=== PATIENT | male | born 1935 | race Hispanic/Latino ===

== ENCOUNTER 2017-11-16 06:29 | Inpatient (IN) | payer MEDICARE, OTHER ==
[~2017-11-16] VITALS: Ht 167.6 cm; Wt 79.0 kg
[2017-11-16] MEDS: ALBUTEROL SULF 0.083% NEB SOLN 3 ML NEB NEB SCH ×4 (00:15→19:20)
[~2017-11-16 06:29] MED LIST: ASPIRIN CHEW81 MG PO; BENZONATATE100 MG PO; CARDIZEM LA180 MG PO; CIPRO500 MG PO; COLACE100 MG PO; FINASTERIDE5 MG PO; HYDRALAZINE HCL10 MG PO; HYDROCHLOROTHIA25 MG; KCL10CCR PO; LASIX40 MG PO; LEVAQUIN500 MG PO; LOVASTATIN40 MG; LSNP2.5 PO; METOPROLOL TART50 MG PO; PEPCID20 MG PO; POTASSIUM CHLO20 ME1 PO; PREDNISONE20 MG PO; XARELTO20 MG PO
[2017-11-16] MEDS ORDERED: ACETAMINOPHEN 325 MG TAB PO ONE (07:45)
[2017-11-16 07:46] LABS: BASOPHILS # (AUTO) 0.1 (0.0-0.1); EOSINOPHILS # (AUTO) 0.1 (0.0-0.4); EOSINOPHILS % 1.7 % (0.0-6.0); HEMATOCRIT 34.1 % (38.2-49.6); HEMOGLOBIN 11.4 g/dL (14.0-18.0); LYMPHOCYTES % 19.6 % (18.0-39.1); MEAN CORPUSCULAR HEMOGLOBIN 28.6 pg (28-32); MEAN CORPUSCULAR HGB CONC 33.4 g/dL (31-35); MEAN CORPUSCULAR VOLUME 85.7 fL (81-99); MONOCYTES # (AUTO) 0.6 (0.2-0.8); NEUTROPHILS # (AUTO) 3.4 (2.1-6.9); NEUTROPHILS % 66.3 % (38.7-80.0); PLATELET COUNT 151 x10e3/uL (140-360); RED BLOOD COUNT 3.98 x10e6/uL (4.3-5.7); RED CELL DISTRIBUTION WIDTH 14.8 % (11.7-14.4)
[2017-11-16] MEDS ORDERED: FINASTERIDE5 MG PO (07:49)
[2017-11-16] MEDS ORDERED: LASIX40 MG PO (07:49)
[2017-11-16] MEDS ORDERED: LISINOPRIL2.5 MG PO (07:49)
[2017-11-16] MEDS ORDERED: XARELTO20 MG PO (07:49)
[2017-11-16 07:58] LABS: INR 1.76; PROTHROMBIN TIME 19.3 seconds (11.9-14.5)
[2017-11-16 07:59] LABS: PARTIAL THROMBOPLASTIN TIME 47.7 seconds (23.8-35.5)
[2017-11-16 08:05] LABS: ALANINE AMINOTRANSFERASE 7 IU/L (0-55); ALBUMIN 3.8 g/dL (3.5-5.0); ALBUMIN/GLOBULIN RATIO 0.8 (0.8-2.0); ALKALINE PHOSPHATASE 51 IU/L (40-150); ANION GAP 12.6 mmol/L (8-16); BLOOD UREA NITROGEN 17 mg/dL (7-26); BUN/CREATININE RATIO 16 (6-25); CALCIUM 8.6 mg/dL (8.4-10.2); CARBON DIOXIDE 22 mmol/L (22-29); CHLORIDE 107 mmol/L (98-107); CREATINE KINASE 94 IU/L (30-200); CREATININE, SERUM 1.04 mg/dL (0.72-1.25); EST GLOMERULAR FILTRATION RATE > 60 ML/MIN (60-); GLUCOSE 116 mg/dL (74-118); POTASSIUM 3.6 mmol/L (3.5-5.1); SODIUM 138 mmol/L (136-145)
[2017-11-16 08:15] LABS: B-TYPE NATRIURETIC PEPTIDE2 785.4 pg/mL (0-100)
--- NOTE | 2017-11-16 08:40 | Diagnostic Imaging Report ---
EXAMINATION: CHEST 2 VIEWS INDICATION: \S\FEVER/COUGH \S\[id number] \S\0744 COMPARISON: 07/18/2016 FINDINGS: PA and lateral views TUBES and LINES: None. LUNGS: Lungs are well inflated. Pulmonary vascular congestion. Minimal retrocardiac hazy opacification. PLEURA: No pleural effusion or pneumothorax. HEART AND MEDIASTINUM: Enlarged cardiac silhouette. Unchanged median sternotomy wires and mediastinal surgical clips. BONES AND SOFT TISSUES: No acute osseous lesion. Soft tissues are unremarkable. UPPER ABDOMEN: No free air under the diaphragm. IMPRESSION: Pulmonary vascular congestion, improved from prior exam. Minimal retrocardiac hazy opacification, representing atelectasis and/or developing pneumonia. Signed by: Dr. Terrance Whitney MD on 11/16/2017 8:36 AM
[2017-11-16] MEDS ORDERED: AZITHROMYCIN 500MG/SOD CHL 0.9% 250ML BAG IV SCH (09:15)
[2017-11-16] MEDS ORDERED: ASPIRIN 81 MG CHEW TAB PO ONE (09:15)
[2017-11-16] MEDS ORDERED: CEFTRIAXONE SOD 1 GM VIAL IV ONE (09:15)
[2017-11-16] MEDS ORDERED: AZITHROMYCIN 500MG/NS 250 ML 250 ML IV ONE (09:30)
--- OUTSIDE RECORDS SUMMARY | 2017-11-16 09:45 | XMS REPORT ---
Author Author [facility] Address Unknown Phone Unavailable Care Team Providers Care Concrete Tester Name Role Phone PHUONG MARKS Unavailable Unavailable Problems This patient has no known problems. Allergies, Adverse Reactions, Alerts This patient has no known allergies or adverse reactions. Medications This patient has no known medications. Results Test Description Test Time Test Comments Text Results Atomic Results Result Comments CHEST 2 VIEWS [place] [address] Patient Name: ALEX LANCASTER MR #: [id number] : 1935 Age/Sex: 81/M Req #: [id number] Adm Physician: Ordered by: PHUONG MARKS MD Report #: [id number] Location: ER Room/Bed: Procedure: [id number] DX/CHEST 2 VIEWS Exam Date: 11/16/17 Exam Time: 0744 REPORT STATUS: Signed EXAMINATION: CHEST 2 VIEWS INDICATION: COMPARISON: 07/18/2016 FINDINGS: PA and lateral views TUBES and LINES: None. LUNGS: Lungs are well inflated. Pulmonary vascular congestion. Minimal retrocardiac hazy opacification. PLEURA: No pleural effusion or pneumothorax. HEART AND MEDIASTINUM: Enlarged cardiac silhouette. Unchanged median sternotomy wires and mediastinal surgical clips. BONES AND SOFT TISSUES: No acute osseous lesion. Soft tissues are unremarkable. UPPER ABDOMEN: No free air under the diaphragm. IMPRESSION: Pulmonary vascular congestion, improved from prior exam. Minimal retrocardiac hazy opacification, representing atelectasis and/or developing pneumonia. Signed by: Dr. Terrance Whitney MD on 11/16/2017 8:36 AM Dictated By: TERRANCE WHITNEY MD 5 Transcribed By: ALEXANDRO on 11/16/17835 COPY TO: PHUONG MARKS MD
[2017-11-16] MEDS: IPRATROPIUM BROMIDE 0.02% 2.5 ML NEB NEB SCH ×2 (10:43→19:20)
[2017-11-16] MEDS: SODIUM CHLORIDE 0.9% 1000ML 1,000 ML IV SCH (10:59)
[2017-11-16] MEDS: OSELTAMIVIR PHOSPHATE 75 MG CAP PO SCH ×2 (11:00→16:55)
[2017-11-16] MEDS: CEFTRIAXONE SOD 1 GM VIAL IV SCH (11:00)
[2017-11-16] MEDS: AZITHROMYCIN 500MG/NS 250 ML 250 ML IV SCH (11:00)
[2017-11-16 11:43] VITALS: BP 126/79
[2017-11-16 12:02] VITALS: BP 126/79
[2017-11-16] MEDS ORDERED: GUAIFENESIN 200 MG/10 ML UDC PO PRN (14:45)
[2017-11-16] MEDS ORDERED: ACETAMINOPHEN 325 MG TAB PO PRN (14:45)
--- NOTE | 2017-11-16 14:47 | Consultation ---
DATE OF CONSULTATION: November 16, 2017 PULMONARY CONSULTATION REASON FOR CONSULTATION: Shortness of breath and cough. HPI: Mr. Mcbride is an 81-year-old male who presented to the emergency room with increasing cough. Patient was having these symptoms for 3 to 4 days. He denies any complaints of chest pain, nausea, vomiting or diarrhea. In the emergency room, he tested positive for flu. REVIEW OF SYSTEMS GENERAL: Denies any fever or chills. HEAD: Denies any head trauma or head injury. ENT: Denies any earache, nosebleed, throat pain. CVS: Denies any chest pain. RESPIRATORY: Cough. No shortness of breath. GI: Denies any nausea or vomiting. OTHER: The rest of the review systems are negative except as in HPI. PAST MEDICAL HISTORY: Hypertension and coronary artery disease. PAST SURGICAL HISTORY: CABG. FAMILY AND SOCIAL HISTORY: He lives with his . He does not smoke and does not drink. PHYSICAL EXAMINATION VITALS: Temperature 101.4, pulse of 108, blood pressure 126/79, respiratory rate 18. HEENT: Head is atraumatic and normocephalic. Pupils are reactive. NECK: Supple. No JVD. Thyroid is not enlarged. CHEST: Clear to auscultation bilaterally. No wheezing. HEART: S1 and S2 audible. ABDOMEN: Soft, nontender and nondistended. EXTREMITIES: No clubbing, cyanosis or edema. NEUROLOGIC: Awake, alert, following commands. No focal neurologic deficit. LABS: Influenza positive. Chemistries within normal limits. Hematology within normal limits. BNP is slightly high to 785.4. Chest x-ray: I have reviewed the images. Some pulmonary congestion but no infiltrate. ASSESSMENT AND PLAN: Mr. Mcbride is an 81-year-old male who presented with cough. Influenza is positive. Agree with Tamiflu and nebulizer treatment. The patient's BNP is slightly on the higher side. Blood pressure has been stable. I will discontinue the IV fluids. He was in atrial fibrillation in the emergency room. Cardiology is following the patient. Thank you for this consult. Job#: [id number]
--- NOTE | 2017-11-16 15:10 | History and Physical ---
Mr. Mcbride is a pleasant 80-year-old man who speaks only Indonesian. CHIEF COMPLAINT: He presented to the emergency room this morning with a complaint of cough, fever and weakness. HISTORY OF PRESENT ILLNESS: The patient reports that he has lost his appetite and is not feeling well. He has had cough and fever for several days. PAST MEDICAL HISTORY: Significant for chronic atrial fibrillation and congestive heart failure. He had previous coronary artery bypass graft surgery at the [facility] in 2004. He takes medications for hyperlipidemia and hypertension. He has had previous hospitalization at [facility] in 2016 for exacerbation of congestive heart failure. HOME MEDICATIONS: Include Xarelto, furosemide, metoprolol, finasteride. Please see the chart for the list. ALLERGIES: NOT ALLERGIC TO ANY MEDICATIONS. PHYSICAL EXAMINATION GENERAL: Exam at this time shows a pleasant, elderly, man who is hard of hearing. VITAL SIGNS: Blood pressure 126/79. Temperature 99.8. Pulse 100 and irregular. HEENT: Unremarkable. NECK: No jugular venous distention. THORAX: Heart sounds S1 and S2 are equal, irregularly irregular. There is no distinct murmur. LUNGS: Faint crackles. ABDOMEN: Scaphoid. Normal bowel sounds. Nontender. EXTREMITIES: No cyanosis, clubbing or edema. EKG shows atrial fibrillation with right bundle branch block. Chest x-ray suggests congestion and possible infiltrate suggesting pneumonia. LABORATORY: Positive for influenza A. His BNP is 785. INR is 1.76. BUN 17, creatinine 1.0. Hemoglobin 11.4, white count 5.6. ASSESSMENT 1. Influenza A. 2. Possible overlying bacterial pneumonia. 3. Congestive heart failure. 4. Chronic atrial fibrillation. PLAN: Will treat with broad-spectrum antibiotics and Tamiflu and continue his home medications. Appreciate input from Dr. Hoover. Further management based on clinical course. Will check echo to further evaluate his elevated BNP. Job#: [id number] cc:MD SWATI SERNA M.D.
[2017-11-16] MEDS: METOPROLOL TARTRATE 50 MG TAB PO SCH (15:19)
[2017-11-16 15:56] VITALS: BP 166/74
[2017-11-16] MEDS: RIVAROXABAN 20 MG TABLET PO SCH (16:55)
[2017-11-16 17:06] LABS: CREATINE KINASE MB 0.7 ng/mL (0-5.0)
[2017-11-16 20:22] VITALS: BP 139/94
[2017-11-16] MEDS: SIMVASTATIN 40 MG TAB PO SCH (20:50)
[2017-11-16] MEDS: BENZONATATE 100 MG CAP PO SCH (20:50)
[2017-11-16 21:00] VITALS: BP 139/94
[2017-11-17] VITALS (8 sets, daily range): BP systolic 121–179; BP diastolic 73–92
[2017-11-17] MEDS: IPRATROPIUM BROMIDE 0.02% 2.5 ML NEB NEB SCH ×5 (00:15→23:50)
[2017-11-17] MEDS: METOPROLOL TARTRATE 50 MG TAB PO SCH ×2 (02:45→15:06)
[2017-11-17] MEDS: ALBUTEROL SULF 0.083% NEB SOLN 3 ML NEB NEB SCH ×6 (04:30→23:50)
[2017-11-17] MEDS: SODIUM CHLORIDE 0.9% 1000ML 1,000 ML IV SCH (05:10)
--- NOTE | 2017-11-17 07:43 | Diagnostic Imaging Report ---
EXAMINATION: CHEST SINGLE (PORTABLE) INDICATION: Pneumonia. COMPARISON: 11/16/2017 FINDINGS: TUBES and LINES: None. LUNGS: Lungs are well inflated. Central vascular congestion. There is perihilar interstitial opacities, consistent with interstitial edema. PLEURA: No pleural effusion or pneumothorax. HEART AND MEDIASTINUM: Cardiac size is moderately enlarged. There are atherosclerotic calcifications within the aorta. Midline sternotomy wires are intact. BONES AND SOFT TISSUES: No acute osseous lesion. Soft tissues are unremarkable. UPPER ABDOMEN: No free air under the diaphragm. IMPRESSION: 1. Developing cardiogenic pulmonary edema. Signed by: Dr. Chin Miranda M.D. on 11/17/2017 7:39 AM
[2017-11-17] MEDS: LISINOPRIL 2.5 MG TAB PO SCH (08:47)
[2017-11-17] MEDS: FINASTERIDE 5 MG TAB PO SCH (08:47)
[2017-11-17] MEDS: POTASSIUM CHLORIDE 10 MEQ TABCR PO SCH (08:47)
[2017-11-17] MEDS: FUROSEMIDE 40 MG TAB PO SCH (08:47)
[2017-11-17] MEDS: CEFTRIAXONE SOD 1 GM VIAL IV SCH (08:48)
[2017-11-17] MEDS: BENZONATATE 100 MG CAP PO SCH ×3 (08:48→21:00)
[2017-11-17] MEDS: AZITHROMYCIN 500MG/NS 250 ML 250 ML IV SCH (08:48)
[2017-11-17 08:57] LABS: EOSINOPHILS # (AUTO) 0.1 (0.0-0.4); EOSINOPHILS % 1.9 % (0.0-6.0); HEMATOCRIT 33.5 % (38.2-49.6); HEMOGLOBIN 10.6 g/dL (14.0-18.0); LYMPHOCYTES # (AUTO) 1.6 (1.0-3.2); LYMPHOCYTES % 38.7 % (18.0-39.1); MEAN CORPUSCULAR HEMOGLOBIN 27.8 pg (28-32); MEAN CORPUSCULAR HGB CONC 31.6 g/dL (31-35); MEAN CORPUSCULAR VOLUME 87.9 fL (81-99); MONOCYTES # (AUTO) 0.6 (0.2-0.8); NEUTROPHILS # (AUTO) 1.8 (2.1-6.9); NEUTROPHILS % 43.2 % (38.7-80.0); PLATELET COUNT 123 x10e3/uL (140-360); RED BLOOD COUNT 3.81 x10e6/uL (4.3-5.7)
[2017-11-17 09:13] LABS: ANION GAP 11.1 mmol/L (8-16); BLOOD UREA NITROGEN 14 mg/dL (7-26); BUN/CREATININE RATIO 16 (6-25); CALCIUM 8.1 mg/dL (8.4-10.2); CARBON DIOXIDE 24 mmol/L (22-29); CHLORIDE 106 mmol/L (98-107); CREATININE, SERUM 0.89 mg/dL (0.72-1.25); EST GLOMERULAR FILTRATION RATE > 60 ML/MIN (60-); GLUCOSE 97 mg/dL (74-118); POTASSIUM 3.1 mmol/L (3.5-5.1); SODIUM 138 mmol/L (136-145)
[2017-11-17 09:36] LABS: CREATINE KINASE MB 1.1 ng/mL (0-5.0)
[2017-11-17] MEDS ORDERED: POTASSIUM CHLORIDE 20 MEQ TAB CR PO ONE (11:00)
[2017-11-17] MEDS: RIVAROXABAN 20 MG TABLET PO SCH (17:23)
[2017-11-17] MEDS: OSELTAMIVIR PHOSPHATE 75 MG CAP PO SCH (17:23)
[2017-11-17] MEDS: SIMVASTATIN 40 MG TAB PO SCH (21:00)
[2017-11-18] VITALS: BP 138/88
[2017-11-18] MEDS: SODIUM CHLORIDE 0.9% 1000ML 1,000 ML IV SCH ×2 (01:10→20:31)
[2017-11-18] MEDS: METOPROLOL TARTRATE 50 MG TAB PO SCH ×2 (02:52→14:45)
[2017-11-18 04:00] VITALS: BP 130/80
[2017-11-18] MEDS: ALBUTEROL SULF 0.083% NEB SOLN 3 ML NEB NEB SCH ×6 (04:00→23:50)
[2017-11-18] MEDS: IPRATROPIUM BROMIDE 0.02% 2.5 ML NEB NEB SCH ×3 (07:00→20:08)
[2017-11-18 07:52] VITALS: BP 137/87
[2017-11-18] MEDS: FUROSEMIDE 40 MG TAB PO SCH (08:51)
[2017-11-18] MEDS: POTASSIUM CHLORIDE 10 MEQ TABCR PO SCH (08:51)
[2017-11-18] MEDS: CEFTRIAXONE SOD 1 GM VIAL IV SCH (08:52)
[2017-11-18] MEDS: AZITHROMYCIN 250 MG TAB PO SCH (08:52)
[2017-11-18] MEDS: FINASTERIDE 5 MG TAB PO SCH (08:52)
[2017-11-18] MEDS: BENZONATATE 100 MG CAP PO SCH ×3 (08:52→20:31)
[2017-11-18] MEDS: OSELTAMIVIR PHOSPHATE 75 MG CAP PO SCH ×2 (08:52→17:20)
[2017-11-18] MEDS: LISINOPRIL 2.5 MG TAB PO SCH (08:52)
[2017-11-18 16:09] VITALS: BP 140/98
[2017-11-18] MEDS: RIVAROXABAN 20 MG TABLET PO SCH (17:20)
[2017-11-18 20:00] VITALS: BP 138/85
[2017-11-18] MEDS: SIMVASTATIN 40 MG TAB PO SCH (20:31)
[2017-11-19] VITALS (9 sets, daily range): BP systolic 121–159; BP diastolic 71–94
[2017-11-19] MEDS ORDERED: ALBUTEROL/IPRATROPIUM 3 ML NEB NEB PRN (00:30)
[2017-11-19] MEDS: ALBUTEROL/IPRATROPIUM 3 ML NEB NEB SCH ×3 (01:00→19:05)
[2017-11-19] MEDS: METOPROLOL TARTRATE 50 MG TAB PO SCH ×2 (03:01→17:01)
--- NOTE | 2017-11-19 08:43 | Diagnostic Imaging Report ---
PROCEDURE:CT CHEST WITHOUT CONTRAST COMPARISON:None. INDICATIONS:Shortness of breath TECHNIQUE: Routine protocol Volumetric CT chest. No intravenous or enteric contrast. Multiplanar reformatted images. DLP: 436.08 FINDINGS: Lungs: Diffuse interlobular septal thickening more prominent in the lower lung zones in association with mild groundglass opacity. No focal airspace disease. Lungs are otherwise normal. Airways: Normal caliber. Mild circumferential bronchial wall thickening. Pleura: Trace left pleural effusion. Lymph nodes: 1 cm short axis AP window node (image 41, series 2). Additional subcentimeter nodes throughout the mediastinum and tato. Pulmonary arteries: Main pulmonary artery diameter 3.6 cm. Diffuse enlargement of the intraparenchymal pulmonary arteries. Thoracic aorta and great vessels: Normal caliber. Multifocal atherosclerosis. Postoperative sequela of CABG. Heart: Global cardiomegaly. No pericardial effusion. Subdiaphragmatic organs: Incompletely characterized 3 cm low-attenuation nodule in the right lobe of the liver with an internal attenuation suggesting a cyst. Otherwise, normal. Skeleton: Multilevel degenerative disc disease. Intact. CONCLUSION: 1. Global cardiomegaly with pulmonary edema. 2. Large pulmonary arteries consistent with pulmonary hypertension. 3. Mediastinal lymphadenopathy, likely reactive. 4. Incompletely characterized liver cyst. Nonemergent liver ultrasound recommended for characterization. Dictated by: Delta Ramey M.D. on 11/19/2017 at 8:43 Electronically approved by: Delta Ramey M.D. on 11/19/2017 at 8:43
[2017-11-19] MEDS ORDERED: POTASSIUM CHLORIDE 10 MEQ TABCR PO ONE (09:30)
[2017-11-19] MEDS: FUROSEMIDE 40 MG TAB PO SCH (10:36)
[2017-11-19] MEDS: FINASTERIDE 5 MG TAB PO SCH (10:37)
[2017-11-19] MEDS: BENZONATATE 100 MG CAP PO SCH ×3 (10:37→21:26)
[2017-11-19] MEDS: CEFTRIAXONE SOD 1 GM VIAL IV SCH (10:37)
[2017-11-19] MEDS: LISINOPRIL 2.5 MG TAB PO SCH (10:37)
[2017-11-19] MEDS: OSELTAMIVIR PHOSPHATE 75 MG CAP PO SCH ×2 (10:37→16:05)
[2017-11-19] MEDS: POTASSIUM CHLORIDE 10 MEQ TABCR PO SCH (10:37)
[2017-11-19] MEDS: AZITHROMYCIN 250 MG TAB PO SCH (10:37)
--- NOTE | 2017-11-19 14:11 | Diagnostic Imaging Report ---
Bilateral knee series, 11/19/2017 Clinical history: Trip and fall. Comparison: None Technique: AP, lateral and oblique views of each knee totaling 6 radiographs Findings: Both knees are intact and in anatomic alignment. Joint spaces are well-maintained for patient age. No effusions. Bilateral atherosclerosis. Multiple surgical clips along the medial aspect of the left upper and lower leg. Impression: No evidence of acute rheumatic injury. This report was generated with voice-recognition technology. Errors in char conveyor tender cellar can occur. Please interpret accordingly and contact a radiologist if there are any questions regarding the report. Signed by: Dr. Delta Ramey M.D. on 11/19/2017 2:07 PM
--- NOTE | 2017-11-19 14:11 | Diagnostic Imaging Report ---
Bilateral knee series, 11/19/2017 Clinical history: Trip and fall. Comparison: None Technique: AP, lateral and oblique views of each knee totaling 6 radiographs Findings: Both knees are intact and in anatomic alignment. Joint spaces are well-maintained for patient age. No effusions. Bilateral atherosclerosis. Multiple surgical clips along the medial aspect of the left upper and lower leg. Impression: No evidence of acute rheumatic injury. This report was generated with voice-recognition technology. Errors in bi lead can occur. Please interpret accordingly and contact a radiologist if there are any questions regarding the report. Signed by: Dr. Delta Ramey M.D. on 11/19/2017 2:07 PM
[2017-11-19] MEDS: RIVAROXABAN 20 MG TABLET PO SCH (17:01)
[2017-11-19] MEDS: SIMVASTATIN 40 MG TAB PO SCH (21:26)
[2017-11-20] VITALS: BP 150/93
[2017-11-20] MEDS: METOPROLOL TARTRATE 50 MG TAB PO SCH (01:16)
[2017-11-20] MEDS: ALBUTEROL/IPRATROPIUM 3 ML NEB NEB SCH ×2 (02:05→07:00)
[2017-11-20 04:00] VITALS: BP 134/68
[2017-11-20 07:47] VITALS: BP 118/78
[2017-11-20] MEDS: FUROSEMIDE 40 MG TAB PO SCH (09:17)
[2017-11-20] MEDS: FINASTERIDE 5 MG TAB PO SCH (09:17)
[2017-11-20] MEDS: OSELTAMIVIR PHOSPHATE 75 MG CAP PO SCH (09:17)
[2017-11-20] MEDS: BENZONATATE 100 MG CAP PO SCH (09:17)
[2017-11-20] MEDS: CEFTRIAXONE SOD 1 GM VIAL IV SCH (09:17)
[2017-11-20] MEDS: AZITHROMYCIN 250 MG TAB PO SCH (09:17)
[2017-11-20] MEDS: LISINOPRIL 2.5 MG TAB PO SCH (09:18)
[2017-11-20] MEDS: POTASSIUM CHLORIDE 10 MEQ TABCR PO SCH (09:19)
== END 2017-11-20 11:00 | disposition home or self-care (01) | DRG 193 ==
LOC: ER 06:29 → ERHOLD 09:42 → MED/SURG3 11:13
PROVIDERS: ADMIT Internal Medicine; ATTEND Internal Medicine
DX: J09.X1 Influenza due to identified novel influenza A virus with pneumonia (principal); I50.33 Acute on chronic diastolic (congestive) heart failure; J15.9 Unspecified bacterial pneumonia; I48.2 Chronic atrial fibrillation; Z95.1 Presence of aortocoronary bypass graft; I11.0 Hypertensive heart disease with heart failure; R09.02 Hypoxemia; I25.10 Atherosclerotic heart disease of native coronary artery without angina pectoris; E78.5 Hyperlipidemia, unspecified; Z79.01 Long term (current) use of anticoagulants
CPT/HCPCS: 36415; 71045; 71046; 71250; 80048; 80053; 82550; 82553; 82948; 83605; 83880; 84484; 85025; 85610; 85730; 87040; 87400; 93005; 93306; 94640; 99284; J0456; J0696; J7030

== ENCOUNTER 2018-06-02 06:49 | Emergency (ER) | payer OTHER ==
[~2018-06-02] VITALS: Ht 167.6 cm; Wt 78.9 kg
[~2018-06-02 06:49] MED LIST changes: +LISINOPRIL2.5 MG PO
[2018-06-02 07:36] LABS: BASOPHILS # (AUTO) 0.1 (0.0-0.1); BASOPHILS % 1.2 % (0.0-1.0); EOSINOPHILS # (AUTO) 0.2 (0.0-0.4); EOSINOPHILS % 2.6 % (0.0-6.0); HEMATOCRIT 35.2 % (38.2-49.6); HEMOGLOBIN 11.8 g/dL (14.0-18.0); LYMPHOCYTES # (AUTO) 1.3 (1.0-3.2); LYMPHOCYTES % 18.6 % (18.0-39.1); MEAN CORPUSCULAR HEMOGLOBIN 29.9 pg (28-32); MEAN CORPUSCULAR HGB CONC 33.5 g/dL (31-35); MEAN CORPUSCULAR VOLUME 89.1 fL (81-99); MONOCYTES # (AUTO) 0.9 (0.2-0.8); MONOCYTES % 13.4 % (4.4-11.3); NEUTROPHILS # (AUTO) 4.3 (2.1-6.9); NEUTROPHILS % 63.5 % (38.7-80.0); PLATELET COUNT 156 x10e3/uL (140-360); RED BLOOD COUNT 3.95 x10e6/uL (4.3-5.7); RED CELL DISTRIBUTION WIDTH 14.3 % (11.7-14.4)
[2018-06-02 07:47] LABS: INR 1.71; PROTHROMBIN TIME 21.4 seconds (11.9-14.5)
[2018-06-02 07:48] LABS: CREATININE, SERUM 1.3 mg/dL (0.9-1.3); PARTIAL THROMBOPLASTIN TIME 43.5 seconds (23.8-35.5)
[2018-06-02 08:16] LABS: ALBUMIN/GLOBULIN RATIO 0.8 (0.8-2.0); CALCIUM 9.3 mg/dL (8.4-10.2)
--- NOTE | 2018-06-02 08:21 | Diagnostic Imaging Report ---
EXAMINATION: Head and face CT without contrast. HISTORY: Status post fall, head and face trauma, head and face pain. COMPARISON: None available TECHNIQUE: Multidetector axial images were obtained without contrast from the foramen magnum to the vertex and over the face. The images were reconstructed using brain and bone algorithms. Thin section brain images were reformatted into coronal and sagittal planes. Dose modulation, iterative reconstruction, and/or weight based adjustment of the mA/kV was utilized to reduce the radiation dose to as low as reasonably achievable. Head CT findings: Skull: No lytic or blastic lesions. No fractures. Parenchyma: Few scattered and mildly confluent periventricular and quiroga radiata white matter hypodensities, most likely nonspecific chronic microvascular ischemic changes. Small chronic lacunar infarct in the left putamen. No mass, hemorrhage or CT evidence of acute vascular insult. Brain volume: Generalized brain volume goes with bilateral medial temporal/hippocampal predominance, which can be seen in patients with Alzheimer's disease, only in the appropriate clinical setting. Ventricles: No hydrocephalus or displacement. Arteries: No density suggestive of thrombus. Dural sinuses: No abnormal density. Extra-axial spaces: No abnormal density. Foramen magnum: No mass, Chiari malformation, or basilar invagination. Sella: No obvious mass. Paranasal/mastoid sinuses: Imaged portions unremarkable. Face CT findings: Bones: No acute displaced fractures Facial soft tissues: Prominent left periorbital and premaxillary soft tissue swelling/hematoma Orbits contents: Unremarkable. Paranasal sinuses and drainage pathways: Clear and patent. Nasal septum and nasal cavities: Right posterior deviation with bony spur. Anatomic variations: No significant anatomic variations. Teeth: Edentulous IMPRESSION: Head CT findings: 1. No acute posttraumatic intracranial hemorrhage. 2. Mild chronic microvascular ischemic changes. 3. Generalized brain volume loss as detailed above. Face CT findings: 1. No acute facial fractures. 2. Large left preorbital and premaxillary soft tissue swelling/hematoma. Signed by: Dr. Corrie Mayorga M.D. on 06/02/2018 8:16 AM
--- NOTE | 2018-06-02 08:26 | Diagnostic Imaging Report ---
EXAMINATION: CT of the cervical spine HISTORY: Status post fall, face trauma, neck pain COMPARISON: None available TECHNIQUE: Multidetector helical axial images were obtained without contrast from the foramen magnum to T1. The images were reconstructed using bone and soft tissue algorithms and were viewed in axial, sagittal and coronal planes. Dose modulation, iterative reconstruction, and/or weight based adjustment of the mA/kV was utilized to reduce the radiation dose to as low as reasonably achievable. FINDINGS: Alignment: Normal alignment and lordosis Soft tissues: Normal Vertebrae: Minimal decreased vertebral body height at C5, C6 and C7, perhaps from remote trauma. Otherwise normal height and density. No acute fracture, infection or neoplasm Degenerative changes: C1-C2: Mild degenerative changes without stenosis C2-C3: Bilateral facet arthrosis without stenoses C3-C4: Bilateral facet arthrosis without stenosis C4-C5: Uncovertebral and facet processes without significant stenosis C5-C6: Disc osteophyte complex formation, uncovertebral and facet arthrosis. Mild spinal canal, moderate right and mild left foraminal stenosis. C6-C7: Disc osteophyte information: Uncovertebral and facet arthrosis. Mild spinal canal and foraminal stenosis most on the left. C7-T1: Normal IMPRESSION: 1. No acute cervical spine postraumatic abnormalities. 2. Mild chronic degenerative changes as detailed above. Note: Acute postraumatic spinal cord, vascular or ligamentous injuries cannot adequately be assessed by CT. Signed by: Dr. Corrie Mayorga M.D. on 06/02/2018 8:21 AM
[2018-06-02 08:31] LABS: CREATINE KINASE MB 0.8 ng/mL (0-5.0)
[2018-06-02] MEDS ORDERED: POTASSIUM CHLORIDE 20 MEQ TAB CR PO STA (09:45)
[2018-06-02 10:17] VITALS: BP 158/87
== END 2018-06-02 10:40 | disposition home or self-care (01) ==
LOC: ER 06:49
DX: S00.212A Abrasion of left eyelid and periocular area, initial encounter (principal); W18.39XA Other fall on same level, initial encounter; Y92.008 Other place in unspecified non-institutional (private) residence as the place of occurrence of the external cause; E87.6 Hypokalemia; K52.9 Noninfective gastroenteritis and colitis, unspecified; I10 Essential (primary) hypertension
CPT/HCPCS: 36415; 70450; 70486; 72125; 80053; 82550; 82553; 84484; 85025; 85610; 85730; 93005; 99284

== ENCOUNTER 2019-08-03 09:28 | Inpatient (IN) | payer OTHER ==
[~2019-08-03] VITALS: Ht 167.6 cm; Wt 77.7 kg
--- NOTE | 2019-08-03 11:15 | NUR ---
rec'd report in walking rounds with elva pedrzaa for continuity of care
[2019-08-03 11:19] LABS: BASOPHILS # (AUTO) 0.1 (0.0-0.1); BASOPHILS % 1.3 % (0.0-1.0); EOSINOPHILS # (AUTO) 0.1 (0.0-0.4); EOSINOPHILS % 2.1 % (0.0-6.0); HEMATOCRIT 22.6 % (38.2-49.6); HEMOGLOBIN 7.1 g/dL (14.0-18.0); LYMPHOCYTES # (AUTO) 0.8 (1.0-3.2); LYMPHOCYTES % 15.6 % (18.0-39.1); MEAN CORPUSCULAR HEMOGLOBIN 28.9 pg (28-32); MEAN CORPUSCULAR HGB CONC 31.4 g/dL (31-35); MEAN CORPUSCULAR VOLUME 91.9 fL (81-99); MONOCYTES # (AUTO) 0.6 (0.2-0.8); MONOCYTES % 12.1 % (4.4-11.3); NEUTROPHILS # (AUTO) 3.3 (2.1-6.9); NEUTROPHILS % 67.6 % (38.7-80.0); PLATELET COUNT 239 x10e3/uL (140-360); RED BLOOD COUNT 2.46 x10e6/uL (4.3-5.7); RED CELL DISTRIBUTION WIDTH 17.4 % (11.7-14.4)
[2019-08-03 11:35] LABS: ALBUMIN 2.8 g/dL (3.5-5.0); ALBUMIN/GLOBULIN RATIO 0.5 (0.8-2.0); ALKALINE PHOSPHATASE 49 IU/L (40-150); ANION GAP 10.1 mmol/L (8-16); BLOOD UREA NITROGEN 26 mg/dL (7-26); BUN/CREATININE RATIO 18 (6-25); CALCIUM 8.6 mg/dL (8.4-10.2); CARBON DIOXIDE 26 mmol/L (22-29); CHLORIDE 102 mmol/L (98-107); CREATINE KINASE 21 IU/L (30-200); CREATININE, SERUM 1.47 mg/dL (0.72-1.25); EST GLOMERULAR FILTRATION RATE 46 ML/MIN (60-); GLUCOSE 123 mg/dL (74-118); POTASSIUM 3.1 mmol/L (3.5-5.1); SODIUM 135 mmol/L (136-145)
[2019-08-03 11:39] LABS: ALANINE AMINOTRANSFERASE < 6 IU/L (0-55)
--- NOTE | 2019-08-03 11:53 | Diagnostic Imaging Report ---
History:Fall, dizzy Comparison studies:CT head 06/02/2018 Technique: Axial images were obtained from the skull base to the vertex. Coronal and sagittal images reconstructed from the axial data. Intravenous contrast: None Dose modulation, iterative reconstruction, and/or weight based adjustment of the mA/kV was utilized to reduce the radiation dose to as low as reasonably achievable. Findings: Scalp/skull: No abnormalities. Extra-axial spaces: No masses. No fluid collections. Brain sulci: Mildly prominent. Ventricles: Moderately prominent compensatory dilatation, more significant at the temporal horns, stable. No hydrocephalus. Parenchyma: Few hypodensities in the supratentorial white matter are small vessel ischemic changes. Chronic lacunar referred at the left posterior putamen. No masses, hemorrhage, acute or chronic cortical vascular insults. Sellar/suprasellar region: No abnormalities. Craniocervical junction: Patent foramen magnum. No Chiari one malformation. Incidental findings: Atherosclerotic calcifications in the carotid siphons and left vertebral artery . Impression: No acute abnormalities. Chronic findings: 1. Moderate ventriculomegaly, more significant at the temporal horns, stable. 2. Mild supratentorial white matter small vessel ischemic changes. Signed by: DR Joey Roberts M.D. on 08/03/2019 11:49 AM
--- NOTE | 2019-08-03 12:47 | NUR ---
dr. glez notified of hgb 7.1/na+135/k+ 3.1. pt. to be admitted per dr. glez
[2019-08-03] MEDS ORDERED: PANTOPRAZOLE 40 MG 10ML VIAL IV STA (12:56)
--- NOTE | 2019-08-03 13:13 | NUR ---
pt. sitting on the edge of the bed eating a cheeseburger and fries
--- NOTE | 2019-08-03 13:35 | NUR ---
type/screen drawn and sent off. verified by elva quigley
[2019-08-03] MEDS ORDERED: POTASSIUM CHLORIDE 20 MEQ TAB CR PO ONE (14:00)
--- NOTE | 2019-08-03 14:14 | NUR ---
attempting to obtain home meds
[2019-08-03] MEDS: SODIUM CHLORIDE 0.9% 1000ML 1,000 ML IV SCH (14:21)
--- NOTE | 2019-08-03 16:13 | NUR ---
language line used to update pt/family on pending admit and to obtain home meds.
--- NOTE | 2019-08-03 17:20 | NUR ---
REPORT GIVEN TO JULISSA BOWMAN FOR THIS PT. TO GO TO RM [id number]
--- NOTE | 2019-08-03 17:38 | NUR ---
TELE #21 PLACED ON THE PT
--- NOTE | 2019-08-03 17:50 | NUR ---
RCD PT FROM ER BY BED PT IS LETHARGIC RESTING ON BED FAMILY AT BED SIDE VITALS CHECKED ADMISSION ASSESSMENT AND HISTORY DONE PT IS GHANAIAN SPEAKING GRANDSON WITH THEM HE TRANSLATED PT FELL DOWN AT HOME ON YESTURDAY SKIN TEAR ON LEFT HAND AND REDNESS ON THE RT SIDE OF HEAD IV PATENT BY SALINE FLUSH INSTRUCTED THE PT AND FAMILY REGARDING HOSPITAL POLICY AND ROUTINE BED LOW AND LOCKED CALL LIGHT IN REACH
[2019-08-03 17:59] VITALS: BP 116/55
[2019-08-03 18:08] VITALS: BP 116/55
--- NOTE | 2019-08-03 18:15 | NUR ---
PAGED DR VIGIL AND NOTIFIED THE HEMOGLOBIN LEVEL GOT THE ORDER TO GI CONSULT NO BLOOD TRANSFUSION
[2019-08-03 18:23] VITALS: BP 116/55
--- NOTE | 2019-08-03 19:15 | NUR ---
PT RESTING ON BED BED SIDE REPORT GIVEN TO ONCOMING NURSE
[2019-08-03 19:25] VITALS: BP 94/50
[2019-08-03 22:04] VITALS: BP 94/50
[2019-08-03 23:40] VITALS: BP 130/58
[2019-08-04] VITALS (7 sets, daily range): BP systolic 94–121; BP diastolic 50–68
[2019-08-04] MEDS: SODIUM CHLORIDE 0.9% 1000ML 1,000 ML IV SCH (04:30)
[2019-08-04 05:17] LABS: BASOPHILS % 1.1 % (0.0-1.0); EOSINOPHILS # (AUTO) 0.2 (0.0-0.4); EOSINOPHILS % 6.9 % (0.0-6.0); LYMPHOCYTES # (AUTO) 0.8 (1.0-3.2); LYMPHOCYTES % 22.9 % (18.0-39.1); MEAN CORPUSCULAR HEMOGLOBIN 29.4 pg (28-32); MEAN CORPUSCULAR HGB CONC 31.7 g/dL (31-35); MEAN CORPUSCULAR VOLUME 92.5 fL (81-99); MONOCYTES # (AUTO) 0.6 (0.2-0.8); NEUTROPHILS # (AUTO) 1.8 (2.1-6.9); PLATELET COUNT 204 x10e3/uL (140-360); RED BLOOD COUNT 2.01 x10e6/uL (4.3-5.7); RED CELL DISTRIBUTION WIDTH 17.6 % (11.7-14.4)
[2019-08-04 05:36] LABS: HEMOGLOBIN 5.9 g/dL (14.0-18.0)
[2019-08-04 05:37] LABS: HEMATOCRIT 18.6 % (38.2-49.6)
[2019-08-04 05:39] LABS: ALBUMIN 2.4 g/dL (3.5-5.0); ALBUMIN/GLOBULIN RATIO 0.5 (0.8-2.0); ALKALINE PHOSPHATASE 44 IU/L (40-150); ANION GAP 6.7 mmol/L (8-16); BLOOD UREA NITROGEN 25 mg/dL (7-26); BUN/CREATININE RATIO 22 (6-25); CALCIUM 7.9 mg/dL (8.4-10.2); CARBON DIOXIDE 24 mmol/L (22-29); CHLORIDE 106 mmol/L (98-107); CREATINE KINASE 25 IU/L (30-200); CREATININE, SERUM 1.13 mg/dL (0.72-1.25); EST GLOMERULAR FILTRATION RATE > 60 ML/MIN (60-); GLUCOSE 95 mg/dL (74-118); POTASSIUM 3.7 mmol/L (3.5-5.1); SODIUM 133 mmol/L (136-145)
[2019-08-04 05:42] LABS: ALANINE AMINOTRANSFERASE < 6 IU/L (0-55)
[2019-08-04] MEDS ORDERED: SODIUM CHLORIDE 0.9% 250ML 250 ML IV ONE (06:00)
[2019-08-04 08:53] LABS: % IRON SATURATION 14 % (15-50); IRON 33 ug/dL (65-175); TOTAL IRON BINDING CAPACITY 234 ug/dL (261-478); TRANSFERRIN 167 mg/dL (174-364)
[2019-08-04] MEDS ORDERED: PANTOPRAZOLE 40 MG 10ML VIAL IV SCH (09:00)
[2019-08-04 09:06] LABS: INR 1.17; PROTHROMBIN TIME 15.5 seconds (11.9-14.5)
[2019-08-04 09:07] LABS: PARTIAL THROMBOPLASTIN TIME 36.2 seconds (23.8-35.5)
[2019-08-04] MEDS ORDERED: SODIUM CHLORIDE 0.9% 250ML 250 ML ONE ×2 (09:39→14:23)
--- NOTE | 2019-08-04 11:58 | History and Physical ---
PRIMARY CARE PHYSICIAN: 1. Ender Davis MD. CONSULTANTS: 1. Renzo Amador MD. 2. Etienne Morataya MD. CHIEF COMPLAINT: Melena, generalized weakness, and passing out. HISTORY OF PRESENT ILLNESS: The patient is an 83-year-old male with severe anemia. His hemoglobin and hematocrit today is 5.9 and 18.6. The patient has been having melena for the past week. He also is on Xarelto for his atrial fibrillation. At baseline, the patient has previous coronary artery bypass graft surgery in 2013. The patient is otherwise stable. Denies any chest pain, but he is too weak. No shortness of breath. PAST MEDICAL HISTORY: Coronary artery disease with previous bypass graft surgery in 2013 at [facility]. Atrial fibrillation, on Xarelto. Congestive heart failure. Hypertension. Enlarged prostate. PAST SURGICAL HISTORY: Bypass graft surgery. SOCIAL HISTORY: The patient does not smoke or use alcohol. No regular drug. ALLERGIES: THERE ARE NO KNOWN ALLERGIES. HOME MEDICATIONS: 1. Furosemide. 2. Lovastatin. 3. Metoprolol tartrate. 4. Potassium. 5. Xarelto. PHYSICAL EXAMINATION: VITAL SIGNS: Temperature is 98, blood pressure 94/50, pulse rate 70, respirations 20. GENERAL: The patient is not in acute distress. He is awake. HEENT: Normocephalic, atraumatic. Pupils reactive. Anicteric. NECK: Supple grossly. PULMONARY: Diminished breath sounds. CARDIOVASCULAR: Some eschar. Atrial fibrillation, rate controlled. Gross murmur. No gallop. No rub. ABDOMEN: Soft. Cachexia. EXTREMITIES: No cyanosis or edema. NEUROLOGIC: No focal deficit. LABORATORY DATA: Sodium 133, potassium 3.7, chloride 106, bicarb 24, BUN 25, creatinine 1.4, glucose 95. WBC 3.5, hemoglobin 6, hematocrit 19, platelets 204. IMPRESSION: 1. Melena, causing the patient anemia, most likely subacute. The patient is on Xarelto. 2. Baseline atrial fibrillation, rate controlled. 3. Coronary artery disease with previous bypass graft surgery. PLAN: Transfuse the patient 2 units of blood for now. The patient will need endoscopy. We will follow up on Xarelto. Consultation with Dr. Etienne Morataya for atrial fibrillation recommendation. The patient is seen by Dr. Renzo Darmadi. MD FARZANA Ordaz /[id number]
[2019-08-04] MEDS: FUROSEMIDE INJ 10 MG/ML 2 ML VIAL IV PRN ×2 (13:10→17:52)
--- NOTE | 2019-08-04 14:50 | NUR ---
Visit made by the Spiritual Care Department Pastoral Visitor, Maru Rasmussen. PV provided pastoral presence, prayer, hospitality, and supportive listening. Pastoral Visitor informed pt/family of the scope of Delivery Manager Services and availability. RENETTA GERARDO [facility]idential [facility] Spiritual Care Department O: [phone] Pager: [phone] ([phone] calling from)
[2019-08-04] MEDS ORDERED: RIVAROXABAN 20 MG TABLET PO SCH (17:00)
[2019-08-04] MEDS: PANTOPRAZOLE 40 MG 10ML VIAL IV SCH (17:00)
--- NOTE | 2019-08-04 18:16 | Consultation ---
DATE OF CONSULTATION: Gastroenterology Consult DICTATED FOR: Renzo Amador M.D. REASON FOR CONSULT: Anemia. CHIEF COMPLAINT: Melena, generalized weakness, and syncope. HISTORY OF PRESENT ILLNESS: The patient is an 83-year-old male with past medical history of CAD with previous bypass graft surgery in 2013; AFib, on Xarelto; CHF; and hypertension, who presented to the ED with reports of melena for the past week along with anemia. The patient was found to have a hemoglobin today of 5.9. He has been on Xarelto, his last dose was yesterday at 10 in the morning, and he has been on Xarelto for many years. He currently denies any chest pain, shortness of breath, abdominal pain, nausea, vomiting, or hematemesis. He states that he has never had any EGD or colonoscopy in the past. He denies any family history of colon cancer. He denies any previous history of drinking heavily or chronic NSAID use. PAST MEDICAL HISTORY: CAD, AFib, CHF, and hypertension. PAST SURGICAL HISTORY: Bypass graft in 2013 per chart. SOCIAL HISTORY: According to the patient, he does not smoke or use alcohol or any recreational drugs. ALLERGIES: NO KNOWN DRUG ALLERGIES. HOME MEDICATIONS: See EMAR. PHYSICAL EXAMINATION: VITAL SIGNS: Temperature 97.4, pulse 81, respiratory rate 18, BP 113/56, and pulse ox 100. General: Awake, alert, and oriented. HEENT: Atraumatic. Anicteric. NECK: Supple grossly. PULMONARY: Clear to auscultation bilaterally. CARDIOVASCULAR: Irregularly irregular rhythm and murmur. ABDOMEN: Soft. Bowel sounds active in all four quadrants. EXTREMITIES: No cyanosis, edema, or clubbing. NEUROLOGIC: No focal deficits. PSYCH: Normal mood and affect. LABORATORY DATA: Hemoglobin 7.1, white count 4.8, platelet count 239, and RDW 17.4. Coags, INR is 1.17 and PT 15.5. Chemistry, sodium 135, potassium 3.1, creatinine 1.47, GFR 46. Iron 33, TIBC 234. T bili 0.7, AST 19, ALT 6. IMPRESSION: 1. Severe anemia - gastrointestinal bleed. 2. Melena causing the patient's iron-deficiency anemia. 3. Coronary artery disease, patient is currently on Xarelto for many years with previous history of bypass graft surgery. PLAN: 1. Plan for an EGD tomorrow with Dr. Amador. Clear liquid diet for now. N.P.O. after midnight. 2. Xarelto has been held since yesterday. 3. Monitor H and H. Transfuse if less than 7. 4. We will go ahead and give the patient Protonix IV b.i.d. 5. Monitor for any GI bleeding. Thank you for the consult. We will continue to follow. CAREN Sykes/SRINIVASAN /[id number]
--- NOTE | 2019-08-04 19:45 | NUR ---
Patient received lying in bed. AAO x 2. at bedside. Patient had no complaints of pain. No signs of respiratory distress. Fall precautions implemented. Patient/ instructed to call for assistance when needed. Call light within reach.
[2019-08-04 20:38] LABS: HEMOGLOBIN 9.6 g/dL (14.0-18.0)
--- NOTE | 2019-08-04 21:00 | NUR ---
Dr. Amador here to see patient. explained the EGD procedure to patient through a entry specialists online (Lauryn Culp #[id number]). Nurse also instructed patient and through online fine grader about NPO status after midnight. Patient and verbalized understanding. Disclosure and Consent form voluntarily signed by patient.
[2019-08-04] MEDS: SIMVASTATIN 40 MG TAB PO SCH (21:12)
--- NOTE | 2019-08-04 22:17 | Consultation ---
DATE OF CONSULTATION: CHIEF COMPLAINT: Syncope, frequent falls at home, generalized weakness, and melena. HISTORY OF PRESENT ILLNESS: Chin Mcbride is an 83-year-old male with primary history of CAD, status post CABG in 2013, atrial fibrillation, CHF with an EF of 40% to 50% in 07/2016, who presents with syncope and hemoglobin and hematocrit of 5.9 and 18.6 respectively. The patient also complains of exertional chest pain and dyspnea on exertion at home, also accompanying symptoms of dizziness and the patient also reports of tarry stools in the last 10 days. The patient is on Xarelto for his atrial fibrillation and at baseline, he has atrial fibrillation, but heart rate is controlled. The patient reports last melena was 2 days ago and none today. The patient denies of any chest pain as of today, but he is very weak. PAST MEDICAL HISTORY: Coronary artery disease with bypass graft surgery in 2013 at [facility], atrial fibrillation and he is on Xarelto at home, congestive heart failure with EF of 40% to 45% in 07/2016, hypertension and enlarged prostate. PAST SURGICAL HISTORY: Bypass graft surgery in 2013. SOCIAL HISTORY: The patient is nonsmoker and non-alcohol use and no illicit drug use. ALLERGIES: THERE ARE NO KNOWN ALLERGIES. MEDICATIONS: He is taking benzonatate 100 mg capsule at home 3 times a day, finasteride 5 mg once daily, potassium chloride 10 mEq extended-release once a day, lovastatin 40 mg 1 tablet daily, also taking Klor-Con 10 mEq extended-release once daily, Xarelto 20 mg tablet one tablet with food once a day, metoprolol tartrate 50 mg tablet daily, lisinopril 2.5 once daily, furosemide 40 mg one tablet daily. PHYSICAL EXAMINATION: VITAL SIGNS: Today, temperature 96.6, pulse of 70, blood pressure was 94/50, respiration rate is 20, O2 saturation is 100%. GENERAL APPEARANCE: Well-nourished and in no acute distress. NECK: Supple. Negative JVD. Negative thyromegaly. LUNGS: Clear to auscultation bilaterally. No wheezing. No rhonchi. CARDIOVASCULAR: Heart rate is regular. S1, S2 are audible. ABDOMEN: Soft. Nondistended. Nontender. Hyperactive bowel sounds. EXTREMITIES: No edema and pulses are palpable. NEUROLOGICAL: Awake, alert, and oriented. HEENT: Normocephalic, atraumatic. Pupils are reactive and anicteric. He also has abrasions on the right side of his head from fall from home. LABORATORY DATA: Sodium is 133, potassium 3.7, chloride 106, bicarb is 24, BUN is 25, creatinine is 1.4, glucose 95. WBC is 3.5, hemoglobin 5.9 and hematocrit is 18.6, platelets 204. PT 15.5, PTT 36.2, INR 1.17. IMPRESSION: 1. Syncope, probable cause is anemia from subacute gastrointestinal bleed. 2. Atrial fibrillation with controlled rate. 3. Coronary artery disease with previous bypass graft surgery. ASSESSMENT AND PLAN: 1. Hold Xarelto for now and continue with blood transfusion and monitor hemoglobin and hematocrit after blood transfusion. 2. We will continue a low-dose beta-parvez and low-dose VADIM inhibitor. 3. We will continue with diuresing with Lasix and monitor I and O and check BNP. 4. Continue telemetry monitoring. Plan of care was discussed with the patient and spouse. Further cardiac workup, pending clinical course. The patient is a possible candidate for Watchman procedure. We will discuss with family and the patient when present medical condition is resolved. Dictated by Malena Peña NP MD CHAZ Guerrier/SRINIVASAN /[id number]
--- NOTE | 2019-08-04 23:00 | NUR ---
Patient acting confused , getting out of bed and stating he is looking for the kitchen. Patient re-oriented and safely transferred to bed. Dr. Romero notified . New order received for a 1:1 sitter PRN.
[2019-08-05] VITALS (8 sets, daily range): BP systolic 91–120; BP diastolic 54–71
--- NOTE | 2019-08-05 00:20 | NUR ---
Patient took out telemetry leads thrice. Leads re-placed. Will continue to monitor.
--- NOTE | 2019-08-05 01:17 | Consultation ---
DATE OF CONSULTATION: 08/04/2019 REASON FOR CONSULT: GI bleeding, consider Watchman procedure. HISTORY OF PRESENT ILLNESS: This is an 83-year-old gentleman with history of atrial fibrillation, who has been on Xarelto and history of hypertension, presented with complaints of weakness, found to have severe anemia and also black tarry stools, found to have GI bleeding, currently receiving blood transfusions. Xarelto has been discontinued. The hemoglobin has been down to 5 and 6. We were consulted to consider Watchman procedure. REVIEW OF SYSTEMS: CONSTITUTIONAL: As per HPI. CARDIOVASCULAR: Negative. RESPIRATORY: Negative. GASTROINTESTINAL: Negative. GENITOURINARY: Negative. MUSCULOSKELETAL: Negative. EYES: Negative. ENT: Negative. ALLERGY/IMMUNOLOGY: Negative. PSYCHIATRIC: Negative. PAST MEDICAL HISTORY: Atrial fibrillation. PAST SURGICAL HISTORY: Denies. FAMILY HISTORY: No premature coronary artery disease. SOCIAL HISTORY: Denies alcohol, smoking. PHYSICAL EXAMINATION: VITAL SIGNS: Blood pressure 148/60, pulse 70, respirations 20, and O2 sats 98%. GENERAL: No acute distress. HEENT: Moist mucous membranes. CARDIOVASCULAR: Regular. RESPIRATORY: Clear. ABDOMEN: Soft and nontender. MUSCULOSKELETAL: 2+ distal pulses. NEUROLOGIC: No focal deficits. SKIN: No lesions. PSYCHIATRIC: Normal thought process. LABORATORY STUDIES: EKG; sinus rhythm, right bundle branch block. IMPRESSION: 1. Gastrointestinal bleeding, requiring blood transfusions, hemoglobin down to 6. 2. Paroxysmal atrial fibrillation, on Xarelto. 3. Hypertension. RECOMMENDATIONS: I had a long discussion with the patient. He is not a good candidate for long-term anticoagulation, which makes him a good candidate for Watchman procedure. He also has high risk for stroke. So explained to the patient in detail we can consider the Watchman procedure, however, we can plan for it once the patient is able to tolerate some low dose of anticoagulation. So for now, I agree with current medical management. Hold the anticoagulation until okayed by clinical project manager. Once the patient is able to tolerate some low-dose anticoagulation, then we can plan for Watchman. I gave him my office information, they plan for a followup in the next 2 or 3 weeks. Thank you for letting us to participate in Mr. Mcbride' healthcare. MD SYED Ortiz/MODL /[id number]
--- NOTE | 2019-08-05 03:00 | NUR ---
Patient pulled his IV out while IV fluids was infusing. Pressure applied to patient's left arm to prevent further bleeding. New IV inserted in right upper arm 20G. Patient tolerated well. Sitter assigned to patient at bedside.
[2019-08-05 05:00] LABS: BASOPHILS % 1.2 % (0.0-1.0); EOSINOPHILS # (AUTO) 0.2 (0.0-0.4); EOSINOPHILS % 4.7 % (0.0-6.0); HEMATOCRIT 26.8 % (38.2-49.6); HEMOGLOBIN 8.9 g/dL (14.0-18.0); LYMPHOCYTES # (AUTO) 0.6 (1.0-3.2); LYMPHOCYTES % 16.6 % (18.0-39.1); MEAN CORPUSCULAR HEMOGLOBIN 29.3 pg (28-32); MEAN CORPUSCULAR HGB CONC 33.2 g/dL (31-35); MONOCYTES # (AUTO) 0.6 (0.2-0.8); MONOCYTES % 17.5 % (4.4-11.3); NEUTROPHILS % 58.5 % (38.7-80.0); PLATELET COUNT 140 x10e3/uL (140-360); RED CELL DISTRIBUTION WIDTH 16.7 % (11.7-14.4)
[2019-08-05 05:01] LABS: MEAN CORPUSCULAR VOLUME 88.2 fL (81-99); RED BLOOD COUNT 3.04 x10e6/uL (4.3-5.7)
[2019-08-05 05:18] LABS: ANION GAP 6.9 mmol/L (8-16); BLOOD UREA NITROGEN 21 mg/dL (7-26); BUN/CREATININE RATIO 19 (6-25); CALCIUM 7.7 mg/dL (8.4-10.2); CARBON DIOXIDE 25 mmol/L (22-29); CHLORIDE 101 mmol/L (98-107); CREATININE, SERUM 1.13 mg/dL (0.72-1.25); EST GLOMERULAR FILTRATION RATE > 60 ML/MIN (60-); GLUCOSE 99 mg/dL (74-118); SODIUM 130 mmol/L (136-145)
[2019-08-05 05:47] LABS: POTASSIUM 2.9 mmol/L (3.5-5.1)
[2019-08-05] MEDS: SODIUM CHLORIDE 0.9% 1000ML 1,000 ML IV SCH (06:15)
--- NOTE | 2019-08-05 06:19 | NUR ---
Dr. Romero notified regarding critical potassium results of 2.9. New order received for potassium 40 MeQ PO x 1 and 40 MeQ potassium 2 hours later. informed about patient's NPO status. MD stated to give morning meds PO regardless of NPO status.
[2019-08-05] MEDS ORDERED: POTASSIUM CHLORIDE 10MEQ EA PO ONE (06:45)
--- NOTE | 2019-08-05 07:15 | NUR ---
mobile lab technician called stating patient is in SVT with a HR of 178. Patient assessed and appears asymptomatic with a HR of 106. Call placed to mobile lab technician. Patient's rhythm recorded as AFIB with a HR of 107. Will continue to monitor.
--- NOTE | 2019-08-05 07:25 | NUR ---
Patient resting comfortably with and sitter at bedside. Shift report given to oncoming nurse regarding patient's status.
[2019-08-05] MEDS ORDERED: POTASSIUM CHLORIDE 20 MEQ TAB CR PO ONE (08:30)
[2019-08-05] MEDS: PANTOPRAZOLE 40 MG 10ML VIAL IV SCH ×2 (09:07→17:00)
[2019-08-05] MEDS: POTASSIUM CHLORIDE 10MEQ EA PO SCH (09:07)
[2019-08-05] MEDS: LISINOPRIL 2.5 MG TAB PO SCH (09:08)
[2019-08-05] MEDS: FUROSEMIDE 40 MG TAB PO SCH (09:08)
[2019-08-05] MEDS: METOPROLOL TARTRATE 25 MG TAB PO SCH (09:08)
--- NOTE | 2019-08-05 11:00 | Consultation ---
DATE OF CONSULTATION: HISTORY OF PRESENT ILLNESS: Chin Mcbride is an 83-year-old male with primary history of CAD post CABG in 2013, history of AFib, CHF, with an EF of 40% to 50% in 07/2016, who presents with syncope. The patient is also complaining of exertional chest pains at home and dyspnea on exertion, accompanied with dizziness. The patient reports of tarry stools in the last 10 days. Admitting hemoglobin and hematocrit today or yesterday DICTATION ENDS HERE DIDIER Lam/MODL /[id number]
--- NOTE | 2019-08-05 11:00 | Consultation ---
DATE OF CONSULTATION: 08/04/2019 Dictated by Malena Peña, OTORHINOLARYNGOLOGIST MD CHAZ Guerrier/SRINIVASAN /[id number]
--- NOTE | 2019-08-05 11:28 | NUR ---
Taken for EGD. NO s/s of acute distress noted.
--- NOTE | 2019-08-05 14:19 | NUR ---
paged to notify patient positive for occult blood.
--- NOTE | 2019-08-05 14:34 | NUR ---
aware patient positive for occult blood. No new orders
[2019-08-05] MEDS ORDERED: LIDOCAINE HCL 2% LOCAL INJ 5 ML SDV VIAL INJ ONE (17:54)
[2019-08-05] MEDS ORDERED: PROPOFOL IV EMULSION 10 MG/ML 20 ML VIAL ONE (17:54)
--- NOTE | 2019-08-05 18:37 | NUR ---
Resting in bed, side rails upx2, call light within reach, at bedside, bed alarm on. Resting in bed with eyes closed. Arousable to verbal stimuli. Respirations even and unlabored.Report to be given to oncoming nurse of patient's status.
--- NOTE | 2019-08-05 19:15 | NUR ---
Patient received lying in bed. AAO x 2. No acute distress noted. Sitter at bedside. present in the room. Call light within reach.
[2019-08-05] MEDS: SIMVASTATIN 40 MG TAB PO SCH (22:12)
[2019-08-06] VITALS (7 sets, daily range): BP systolic 109–132; BP diastolic 57–68
[2019-08-06] MEDS: SODIUM CHLORIDE 0.9% 1000ML 1,000 ML IV SCH (03:09)
[2019-08-06 05:33] LABS: BASOPHILS % 1.4 % (0.0-1.0); EOSINOPHILS # (AUTO) 0.2 (0.0-0.4); HEMATOCRIT 25.4 % (38.2-49.6); HEMOGLOBIN 8.3 g/dL (14.0-18.0); LYMPHOCYTES # (AUTO) 0.6 (1.0-3.2); LYMPHOCYTES % 19.9 % (18.0-39.1); MEAN CORPUSCULAR HEMOGLOBIN 29.4 pg (28-32); MEAN CORPUSCULAR HGB CONC 32.7 g/dL (31-35); MEAN CORPUSCULAR VOLUME 90.1 fL (81-99); MONOCYTES # (AUTO) 0.5 (0.2-0.8); MONOCYTES % 17.8 % (4.4-11.3); NEUTROPHILS # (AUTO) 1.5 (2.1-6.9); NEUTROPHILS % 53.2 % (38.7-80.0); PLATELET COUNT 116 x10e3/uL (140-360); RED BLOOD COUNT 2.82 x10e6/uL (4.3-5.7); RED CELL DISTRIBUTION WIDTH 17.1 % (11.7-14.4)
[2019-08-06 05:58] LABS: ANION GAP 6.6 mmol/L (8-16); BLOOD UREA NITROGEN 15 mg/dL (7-26); BUN/CREATININE RATIO 16 (6-25); CALCIUM 7.7 mg/dL (8.4-10.2); CARBON DIOXIDE 21 mmol/L (22-29); CHLORIDE 108 mmol/L (98-107); CREATININE, SERUM 0.92 mg/dL (0.72-1.25); EST GLOMERULAR FILTRATION RATE > 60 ML/MIN (60-); GLUCOSE 97 mg/dL (74-118); POTASSIUM 3.6 mmol/L (3.5-5.1); SODIUM 132 mmol/L (136-145)
--- NOTE | 2019-08-06 07:00 | NUR ---
BEDSIDE SHIFT REPORT RECEIVED FROM NIGHT RN. PT DENIES NEEDS AT THIS TIME.
--- NOTE | 2019-08-06 07:00 | NUR ---
Walking rounds done. Shift report given to oncoming nurse.
[2019-08-06 08:12] LABS: EOSINOPHILS % (MANUAL) 7 % (0-7); LYMPHOCYTES % (MANUAL) 9 % (19-48); MONOCYTES % (MANUAL) 6 % (3.4-9.0); MYELOCYTES % (MANUAL) 1 % (0-0); NEUTROPHILS % (MANUAL) 74 % (40-74); NUCLEATED RED BLOOD CELLS 1
[2019-08-06 08:13] LABS: ANISOCYTOSIS SLIGHT; PLATELET ESTIMATE SLIGHTLY DECREASED; PLATELET MORPHOLOGY COMMENT NORMAL; RBC MORPHOLOGY COMMENT ABNORMAL
[2019-08-06] MEDS: METOPROLOL TARTRATE 25 MG TAB PO SCH (08:32)
[2019-08-06] MEDS: FUROSEMIDE 40 MG TAB PO SCH (08:32)
[2019-08-06] MEDS: LISINOPRIL 2.5 MG TAB PO SCH (08:32)
[2019-08-06] MEDS: PANTOPRAZOLE 40 MG 10ML VIAL IV SCH (08:32)
[2019-08-06] MEDS: POTASSIUM CHLORIDE 10MEQ EA PO SCH ×2 (08:33→09:30)
[2019-08-06] MEDS ORDERED: CYANOCOBALAMIN INJ 1,000 MCG/ML VIAL IM ONE (09:15)
[2019-08-06] MEDS ORDERED: FOLIC ACID 1 MG TAB PO ONE (09:45)
[2019-08-06] MEDS: IRON SUCROSE 100 MG in SODIUM CHLORIDE 0.9% 100 ML 100 ML IV SCH (10:42)
[2019-08-06] MEDS: SUCRALFATE 1 GM/10 ML SUSP PO SCH ×3 (12:12→21:40)
--- NOTE | 2019-08-06 19:30 | NUR ---
Patient received lying in bed. AAO x 2. No complaints of pain or respiratory distress. Bed alarm activated. Call light within reach.
[2019-08-06] MEDS: SIMVASTATIN 40 MG TAB PO SCH (21:40)
[2019-08-07] VITALS (8 sets, daily range): BP systolic 91–123; BP diastolic 45–65
[2019-08-07] MEDS: POTASSIUM CHLORIDE 10MEQ EA PO SCH ×2 (05:40→08:15)
--- NOTE | 2019-08-07 07:00 | NUR ---
Patient resting comfortably. Shift report given to oncoming nurse about patient's status.
[2019-08-07] MEDS: METOPROLOL TARTRATE 25 MG TAB PO SCH (08:15)
[2019-08-07] MEDS: LISINOPRIL 2.5 MG TAB PO SCH (08:15)
[2019-08-07] MEDS: FOLIC ACID 1 MG TAB PO SCH (08:15)
[2019-08-07] MEDS: CYANOCOBALAMIN INJ 1,000 MCG/ML VIAL IM SCH (08:15)
[2019-08-07] MEDS: FUROSEMIDE 40 MG TAB PO SCH (08:15)
[2019-08-07] MEDS: SUCRALFATE 1 GM/10 ML SUSP PO SCH ×4 (08:15→21:30)
[2019-08-07] MEDS: PANTOPRAZOLE SOD 40 MG TABEC PO SCH (08:15)
[2019-08-07] MEDS: IRON SUCROSE 100 MG in SODIUM CHLORIDE 0.9% 100 ML 100 ML IV SCH (10:30)
[2019-08-07] MEDS: SIMVASTATIN 40 MG TAB PO SCH (21:30)
[2019-08-08] VITALS (8 sets, daily range): BP systolic 105–141; BP diastolic 54–81
[2019-08-08] MEDS: POTASSIUM CHLORIDE 10MEQ EA PO SCH ×2 (06:00→08:15)
[2019-08-08 06:01] LABS: BASOPHILS % 1.5 % (0.0-1.0); EOSINOPHILS # (AUTO) 0.2 (0.0-0.4); HEMATOCRIT 25.7 % (38.2-49.6); HEMOGLOBIN 8.6 g/dL (14.0-18.0); LYMPHOCYTES # (AUTO) 0.6 (1.0-3.2); LYMPHOCYTES % 21.4 % (18.0-39.1); MEAN CORPUSCULAR HGB CONC 33.5 g/dL (31-35); MEAN CORPUSCULAR VOLUME 89.5 fL (81-99); MONOCYTES # (AUTO) 0.5 (0.2-0.8); MONOCYTES % 18.4 % (4.4-11.3); NEUTROPHILS # (AUTO) 1.4 (2.1-6.9); NEUTROPHILS % 51.6 % (38.7-80.0); PLATELET COUNT 110 x10e3/uL (140-360); RED BLOOD COUNT 2.87 x10e6/uL (4.3-5.7); RED CELL DISTRIBUTION WIDTH 17.5 % (11.7-14.4)
--- NOTE | 2019-08-08 07:00 | NUR ---
Walking rounds done. Patient denies pain. Report given to oncoming nurse.
[2019-08-08] MEDS: FOLIC ACID 1 MG TAB PO SCH (08:15)
[2019-08-08] MEDS: PANTOPRAZOLE SOD 40 MG TABEC PO SCH (08:15)
[2019-08-08] MEDS: SUCRALFATE 1 GM/10 ML SUSP PO SCH ×4 (08:15→20:39)
[2019-08-08] MEDS: CYANOCOBALAMIN INJ 1,000 MCG/ML VIAL IM SCH (08:15)
[2019-08-08] MEDS: FUROSEMIDE 40 MG TAB PO SCH (08:15)
[2019-08-08] MEDS: LISINOPRIL 2.5 MG TAB PO SCH (08:15)
[2019-08-08] MEDS: METOPROLOL TARTRATE 25 MG TAB PO SCH (08:15)
[2019-08-08] MEDS ORDERED: SODIUM CHLORIDE 0.9% 250ML 250 ML ONE (10:46)
[2019-08-08] MEDS: IRON SUCROSE 100 MG in SODIUM CHLORIDE 0.9% 100 ML 100 ML IV SCH (10:48)
--- NOTE | 2019-08-08 17:23 | NUR ---
Nutrition Screen Note RD Recommendation for Physician: Continue diet as ordered Plan of Care: RD following, monitoring for tolerance and adequacy Nutrition reason for involvement: LOS Primary Diagnose(s):Syncope PMH: CABG, CAD, Heart failure, HTN, Ht:66 in Wt:171.38lb BMI:27.7 kg/m2 IBW: 142lb +/-10% RD Assessment: (08/08/2019) Chart reviewed. Labs and meds reviewed. Initial encounter with patient. Pt is eating well. Pt denies any N,V,D, nor has any difficulty chewing or swallowing. No known food allergies Current Diet: regular diet Malnutrition Evaluation (08/08/2019) The patient does not meet criteria for a specified degree of malnutrition at this time. Will re-evaluate at follow-up as appropriate. Diet Education Needs Assessment: Diet education not indicated. Nutrition Care Level: Low Signed: Donald Hancock RD, LD, [facility]
[2019-08-08] MEDS: SIMVASTATIN 40 MG TAB PO SCH (20:39)
[2019-08-09] VITALS (8 sets, daily range): BP systolic 91–130; BP diastolic 53–68
[2019-08-09] MEDS: POTASSIUM CHLORIDE 10MEQ EA PO SCH ×2 (04:34→10:06)
[2019-08-09] MEDS: LISINOPRIL 2.5 MG TAB PO SCH ×2 (09:00→12:48)
[2019-08-09] MEDS: METOPROLOL TARTRATE 25 MG TAB PO SCH (10:06)
[2019-08-09] MEDS: FUROSEMIDE 40 MG TAB PO SCH (10:06)
[2019-08-09] MEDS: CYANOCOBALAMIN INJ 1,000 MCG/ML VIAL IM SCH (10:06)
[2019-08-09] MEDS: PANTOPRAZOLE SOD 40 MG TABEC PO SCH (10:06)
[2019-08-09] MEDS: FOLIC ACID 1 MG TAB PO SCH (10:06)
[2019-08-09] MEDS: SUCRALFATE 1 GM/10 ML SUSP PO SCH ×5 (10:06→20:29)
--- NOTE | 2019-08-09 13:02 | NUR ---
BEDSIDE REPORT RECEIVED FROM TRANSFERRING RN. PT TO THE FLOOR. VITALS WNL. PT DENIES NEEDS AT THIS TIME.
[2019-08-09] MEDS: SIMVASTATIN 40 MG TAB PO SCH (20:29)
[2019-08-10] VITALS (8 sets, daily range): BP systolic 101–130; BP diastolic 59–76
--- NOTE | 2019-08-10 00:09 | NUR ---
Patient states he does not want telemetry attached at this time. Informed fire control technician b. Telemetry unit placed on night stand. Will reattempt placement with next vitals.
[2019-08-10] MEDS: POTASSIUM CHLORIDE 10MEQ EA PO SCH ×2 (05:22→17:09)
--- NOTE | 2019-08-10 07:09 | NUR ---
BEDSIDE SHIFT REPORT RECEIVED PT IN STABLE CONDITION, DENEIS PAIN AT THIS TIME, L AC 20G NO SS OF INFILTRATION NOTED, NO OTHER CO VOCIED CALL LIGHT IN REACH WILL CONTINUE TO MONITOR
--- NOTE | 2019-08-10 07:20 | NUR ---
TELEMETRY BOX OFF, PT REFUSING TO REAPPLY AT THIS TIME, ENCOURAGED PT IMPORTANCE OF WEARING AND MONITORING OF BOX. WILL CONTINUE TO MONITOR
--- NOTE | 2019-08-10 08:42 | NUR ---
PAGED DR LEO RE: IF PT IS GOING TO HAVE A COLONOSCOPY SCHEDULED AWAITING CALL BACK
[2019-08-10] MEDS: METOPROLOL TARTRATE 25 MG TAB PO SCH ×2 (08:45→17:09)
[2019-08-10] MEDS: PANTOPRAZOLE SOD 40 MG TABEC PO SCH (08:45)
[2019-08-10] MEDS: SUCRALFATE 1 GM/10 ML SUSP PO SCH ×4 (08:45→21:00)
[2019-08-10] MEDS: FUROSEMIDE 40 MG TAB PO SCH (08:45)
[2019-08-10] MEDS: FOLIC ACID 1 MG TAB PO SCH (08:45)
[2019-08-10] MEDS ORDERED: POTASSIUM CHLORIDE 10MEQ EA PO SCH (09:00)
[2019-08-10 09:27] LABS: BASOPHILS % 0.9 % (0.0-1.0); EOSINOPHILS # (AUTO) 0.2 (0.0-0.4); EOSINOPHILS % 5.2 % (0.0-6.0); HEMATOCRIT 28.7 % (38.2-49.6); HEMOGLOBIN 9.3 g/dL (14.0-18.0); LYMPHOCYTES # (AUTO) 0.7 (1.0-3.2); LYMPHOCYTES % 20.4 % (18.0-39.1); MEAN CORPUSCULAR HEMOGLOBIN 29.6 pg (28-32); MEAN CORPUSCULAR HGB CONC 32.4 g/dL (31-35); MEAN CORPUSCULAR VOLUME 91.4 fL (81-99); MONOCYTES # (AUTO) 0.4 (0.2-0.8); MONOCYTES % 11.7 % (4.4-11.3); NEUTROPHILS % 61.2 % (38.7-80.0); PLATELET COUNT 117 x10e3/uL (140-360); RED BLOOD COUNT 3.14 x10e6/uL (4.3-5.7); RED CELL DISTRIBUTION WIDTH 17.8 % (11.7-14.4)
[2019-08-10 09:51] LABS: ANION GAP 8.3 mmol/L (8-16); BLOOD UREA NITROGEN 17 mg/dL (7-26); BUN/CREATININE RATIO 19 (6-25); CALCIUM 8.1 mg/dL (8.4-10.2); CARBON DIOXIDE 25 mmol/L (22-29); CHLORIDE 99 mmol/L (98-107); CREATININE, SERUM 0.91 mg/dL (0.72-1.25); EST GLOMERULAR FILTRATION RATE > 60 ML/MIN (60-); GLUCOSE 132 mg/dL (74-118); POTASSIUM 3.3 mmol/L (3.5-5.1); SODIUM 129 mmol/L (136-145)
--- NOTE | 2019-08-10 10:15 | NUR ---
PAGED DR LEO AWAITING CALL BACK
--- NOTE | 2019-08-10 12:10 | NUR ---
SPOKE WITH DR LEO PT TO HAVE COLONOSCOPY IN AM AROUND 7AM
[2019-08-10] MEDS ORDERED: PEG (High)/E-LYTE SOLN 4,000 ML BTL PO NR (18:00)
[2019-08-10] MEDS ORDERED: BISACODYL 5 MG TAB EC PO ONE (18:00)
--- NOTE | 2019-08-10 19:10 | NUR ---
Bedside rounding completed with morning nurse. Pt alert and oriented to name. Pt lying in bed HOB 45 degrees. Denies pain at this time. Call light within reach. Bed low and locked. Bed alarm on.
--- NOTE | 2019-08-10 20:30 | NUR ---
Dr. Amador rounded, informed Pt to drink all of the GoLYTELY before before 12 mn, then NPO. Colonoscopy will be performed at 0700. Pt/ verbalized understanding.
[2019-08-10] MEDS: SIMVASTATIN 40 MG TAB PO SCH (21:00)
[2019-08-11] VITALS: BP 108/67
[2019-08-11 04:00] VITALS: BP 107/67
[2019-08-11 05:35] LABS: BASOPHILS # (AUTO) 0.1 (0.0-0.1); BASOPHILS % 1.4 % (0.0-1.0); EOSINOPHILS # (AUTO) 0.2 (0.0-0.4); EOSINOPHILS % 5.9 % (0.0-6.0); HEMOGLOBIN 8.6 g/dL (14.0-18.0); LYMPHOCYTES # (AUTO) 0.8 (1.0-3.2); LYMPHOCYTES % 22.7 % (18.0-39.1); MEAN CORPUSCULAR HEMOGLOBIN 29.7 pg (28-32); MEAN CORPUSCULAR HGB CONC 33.1 g/dL (31-35); MEAN CORPUSCULAR VOLUME 89.7 fL (81-99); MONOCYTES # (AUTO) 0.6 (0.2-0.8); MONOCYTES % 15.7 % (4.4-11.3); NEUTROPHILS # (AUTO) 1.9 (2.1-6.9); NEUTROPHILS % 53.7 % (38.7-80.0); PLATELET COUNT 132 x10e3/uL (140-360); RED CELL DISTRIBUTION WIDTH 17.2 % (11.7-14.4)
[2019-08-11 05:57] LABS: ALANINE AMINOTRANSFERASE 7 IU/L (0-55); ALBUMIN 2.4 g/dL (3.5-5.0); ALBUMIN/GLOBULIN RATIO 0.5 (0.8-2.0); ALKALINE PHOSPHATASE 55 IU/L (40-150); ANION GAP 9.4 mmol/L (8-16); BLOOD UREA NITROGEN 14 mg/dL (7-26); BUN/CREATININE RATIO 16 (6-25); CARBON DIOXIDE 25 mmol/L (22-29); CHLORIDE 102 mmol/L (98-107); CREATININE, SERUM 0.88 mg/dL (0.72-1.25); EST GLOMERULAR FILTRATION RATE > 60 ML/MIN (60-); GLUCOSE 99 mg/dL (74-118); SODIUM 132 mmol/L (136-145)
[2019-08-11 05:59] LABS: POTASSIUM 4.4 mmol/L (3.5-5.1)
--- NOTE | 2019-08-11 06:22 | NUR ---
Showered. Taken for Colonoscopy, consent signed. Denies pain. No acute distress noted.
--- NOTE | 2019-08-11 07:00 | NUR ---
PATIENT GONE FOR COLONOSCOPY AT THIS TIME.
[2019-08-11 08:20] VITALS: BP 121/73
[2019-08-11 09:12] VITALS: BP 121/73
[2019-08-11] MEDS: FOLIC ACID 1 MG TAB PO SCH (09:16)
[2019-08-11] MEDS: PANTOPRAZOLE SOD 40 MG TABEC PO SCH (09:16)
[2019-08-11] MEDS: SUCRALFATE 1 GM/10 ML SUSP PO SCH ×2 (09:16→11:53)
[2019-08-11] MEDS: FUROSEMIDE 40 MG TAB PO SCH (09:17)
[2019-08-11] MEDS: METOPROLOL TARTRATE 25 MG TAB PO SCH (09:17)
[2019-08-11] MEDS: POTASSIUM CHLORIDE 10MEQ EA PO SCH (09:17)
--- NOTE | 2019-08-11 10:00 | NUR ---
IMM explained to patient and daughter, daughter signed, copyto pt, copy to chart. Also, daughter is inquiring about provider services. After hearing patient's income, information about how to reach out and request through medicaid is given.
[2019-08-11] MEDS ORDERED: CARAFATE1 GM/10 ML PO (10:40)
[2019-08-11] MEDS ORDERED: OMEPRAZOLE40 MG PO (10:40)
[2019-08-11] MEDS ORDERED: folic acid PO (10:41)
[2019-08-11] MEDS ORDERED: HEMOCYTE PLUS1 EACH PO (10:42)
[2019-08-11] MEDS ORDERED: VITAMIN B-121000 MC2 PO (10:46)
[2019-08-11 11:18] VITALS: BP 107/69
--- NOTE | 2019-08-11 12:29 | NUR ---
REMOVED PATIENTS IV. CATHETER TIP INTACT AND PRESSURE DRESSING APPLIED.
--- NOTE | 2019-08-11 12:49 | NUR ---
PATIENT DISCHARGED FROM FACILITY. PATIENT GATHERED ALL PERSONAL BELONGINGS, DISCHARGE INSTRUCTIONS, AND FOLLOW UP INFORMATION. LEFT UNIT IN WHEELCHAIR AND WENT HOME VIA PRIVATE AUTO. NO SIGNS OF DISTRESS WHEN LEAVING FACILITY.
[2019-08-11] MEDS ORDERED: PROPOFOL IV EMULSION 10 MG/ML 50 ML VIAL ONE (14:10)
--- NOTE | 2019-08-12 03:25 | Discharge Summary ---
PRIMARY CARE PHYSICIAN: Ender Davis MD. CONSULTANTS: 1. Renzo Amador MD. 2. Etienne Morataya MD. 3. Bacilio Roberto MD. FINAL DIAGNOSES: 1. Chronic blood loss anemia, status post blood transfusion. 2. Baseline paroxysmal atrial fibrillation, who was on Xarelto. Xarelto was discontinued. The patient is pending for a Watchman procedure done by Dr. Bacilio Caro as an outpatient. The patient will follow up with Dr. Farmer for the Watchman procedures. 3. Status post EGD and colonoscopy, finding of gastritis and diverticular disease. SUMMARY: The patient is an 83-year-old male with a stool for occult blood positive. The patient is quite anemic with symptomatic anemia. Hemoglobin and hematocrit on admission were 5.9 and 18.6. Since then the patient has received a total of 4 units blood transfusion. Hemoglobin and hematocrit are stable today at 8.6 and 26.0. The patient underwent EGD and colonoscopy. Because of the holiday, the patient was waiting for colonoscopy today morning. The patient is otherwise stable. No gross . He has diverticular disease. The patient is cleared to go home today. He will follow up with Dr. Farmer for the watchman procedures. Discontinue the Xarelto. Continue with other medication. Carafate suspension 1 g before meals and at bedtime, omeprazole ER 4 mg daily, folic acid 1 mg daily, B12 sublingual daily, Hemocyte-Plus one tablet daily. Of note, the patient did receive B12 injection and iron infusion while he was hospitalized. The patient is stable and discharged home today. MD EMILIE Ordaz/MODL /[id number]
== END 2019-08-11 13:01 | disposition home or self-care (01) | DRG 378 ==
LOC: ER 09:40 → ERHOLD 13:00 → MED/SURG2 17:54 → MED/SURG 08-09 12:58
PROVIDERS: ADMIT Internal Medicine; ATTEND Internal Medicine
PROC: 0DB78ZX Excision of Stomach, Pylorus, Via Natural or Artificial Opening Endoscopic, Diagnostic (ICD-10-PCS; 2019-08-05)
PROC: 0DB58ZX Excision of Esophagus, Via Natural or Artificial Opening Endoscopic, Diagnostic (ICD-10-PCS; 2019-08-05)
PROC: 30233N1 Transfusion of Nonautologous Red Blood Cells into Peripheral Vein, Percutaneous Approach (ICD-10-PCS; 2019-08-05)
PROC: 0DBK8ZX Excision of Ascending Colon, Via Natural or Artificial Opening Endoscopic, Diagnostic (ICD-10-PCS; principal; 2019-08-11 07:06)
DX: K29.71 Gastritis, unspecified, with bleeding (principal); D62 Acute posthemorrhagic anemia; I48.0 Paroxysmal atrial fibrillation; Z79.01 Long term (current) use of anticoagulants; I25.10 Atherosclerotic heart disease of native coronary artery without angina pectoris; K57.30 Diverticulosis of large intestine without perforation or abscess without bleeding; D46.9 Myelodysplastic syndrome, unspecified; Z95.1 Presence of aortocoronary bypass graft; I10 Essential (primary) hypertension
CPT/HCPCS: 36415; 43239; 45385; 70450; 80048; 80053; 82270; 82550; 82553; 82607; 83540; 84466; 84484; 85014; 85018; 85025; 85610; 85730; 86850; 86900; 86920; 88305; 88312; 93005; 93306; 99284; J1756; J1940; J2001; J3420; J7030; J7050; P9016

== ENCOUNTER 2019-08-22 13:22 | Emergency (ER) | payer OTHER ==
[~2019-08-22] VITALS: Ht 167.6 cm; Wt 77.6 kg
[~2019-08-22 13:22] MED LIST changes: +CARAFATE1 GM/10 ML PO; +HEMOCYTE PLUS1 EACH PO; +OMEPRAZOLE40 MG PO; +VITAMIN B-121000 MC2 PO; +folic acid PO
[2019-08-22 14:24] LABS: BASOPHILS # (AUTO) 0.1 (0.0-0.1); BASOPHILS % 1.6 % (0.0-1.0); EOSINOPHILS # (AUTO) 0.2 (0.0-0.4); EOSINOPHILS % 3.6 % (0.0-6.0); HEMATOCRIT 32.7 % (38.2-49.6); HEMOGLOBIN 10.6 g/dL (14.0-18.0); LYMPHOCYTES # (AUTO) 1.1 (1.0-3.2); LYMPHOCYTES % 25.5 % (18.0-39.1); MEAN CORPUSCULAR HEMOGLOBIN 30.4 pg (28-32); MEAN CORPUSCULAR HGB CONC 32.4 g/dL (31-35); MEAN CORPUSCULAR VOLUME 93.7 fL (81-99); MONOCYTES # (AUTO) 0.6 (0.2-0.8); MONOCYTES % 13.9 % (4.4-11.3); NEUTROPHILS # (AUTO) 2.4 (2.1-6.9); NEUTROPHILS % 54.7 % (38.7-80.0); PLATELET COUNT 286 x10e3/uL (140-360); RED BLOOD COUNT 3.49 x10e6/uL (4.3-5.7); RED CELL DISTRIBUTION WIDTH 16.9 % (11.7-14.4)
[2019-08-22 14:28] LABS: INR 1.11; PROTHROMBIN TIME 14.8 seconds (11.9-14.5)
[2019-08-22 14:29] LABS: PARTIAL THROMBOPLASTIN TIME 37.5 seconds (23.8-35.5)
[2019-08-22 14:38] LABS: ALANINE AMINOTRANSFERASE 8 IU/L (0-55); ALBUMIN 2.6 g/dL (3.5-5.0); ALBUMIN/GLOBULIN RATIO 0.4 (0.8-2.0); ALKALINE PHOSPHATASE 62 IU/L (40-150); ANION GAP 10.7 mmol/L (8-16); BLOOD UREA NITROGEN 15 mg/dL (7-26); BUN/CREATININE RATIO 13 (6-25); CALCIUM 8.5 mg/dL (8.4-10.2); CARBON DIOXIDE 22 mmol/L (22-29); CHLORIDE 109 mmol/L (98-107); CREATININE, SERUM 1.12 mg/dL (0.72-1.25); EST GLOMERULAR FILTRATION RATE > 60 ML/MIN (60-); GLUCOSE 102 mg/dL (74-118); POTASSIUM 3.7 mmol/L (3.5-5.1); SODIUM 138 mmol/L (136-145)
[2019-08-22 14:42] LABS: CREATINE KINASE MB 0.9 ng/mL (0-5.0)
[2019-08-22 15:10] LABS: CLARITY,URINE TURBID (CLEAR); COLOR,URINE RED (YELLOW)
[2019-08-22 15:11] LABS: LEUKOCYTE ESTERASE ,URINE MODERATE (NEGATIVE); NITRITE,URINE POSITIVE (NEGATIVE); PROTEIN,URINE DIPSTICK 3+ (NEGATIVE)
[2019-08-22 15:12] LABS: BILIRUBIN,URINE NEGATIVE (NEGATIVE); KETONES,URINE 1+ (NEGATIVE); URINE UROBILINOGEN 2 mg/dL (0.2 - 1)
[2019-08-22 15:13] LABS: BACTERIA,URINE MODERATE /HPF; EPITHELIAL CELLS,URINE RARE /LPF; RBC,URINE >50 /HPF (0-5)
[2019-08-22] MEDS ORDERED: CEFTRIAXONE SOD 1 GM VIAL IV ONE (15:45)
[2019-08-22] MEDS ORDERED: CEFTRIAXONE SOD 1 GM/NS 50 ML 50 ML IV ONE (16:00)
[2019-08-22 16:39] VITALS: BP 147/84
== END 2019-08-22 16:40 | disposition home or self-care (01) ==
LOC: ER 13:22
DX: N39.0 Urinary tract infection, site not specified (principal); R31.9 Hematuria, unspecified; I10 Essential (primary) hypertension; E78.5 Hyperlipidemia, unspecified; I50.9 Heart failure, unspecified; I25.2 Old myocardial infarction
CPT/HCPCS: 36415; 80053; 81001; 82550; 82553; 83880; 84484; 85025; 85610; 85730; 87086; 93005; 99284; J0696

== ENCOUNTER 2019-08-26 14:14 | Inpatient (IN) | payer OTHER ==
[~2019-08-26] VITALS: Ht 167.6 cm; Wt 56.8 kg
--- NOTE | 2019-08-26 16:02 | Diagnostic Imaging Report ---
CT of the abdomen and pelvis, without contrast, 08/26/2019. History: Hematuria. Comparison: None available. Technique: Multidetector CT scanning of the abdomen and pelvis was performed from the level of the lung bases to the inferior pubic rami without intravenous or oral contrast. Coronal and sagittal multiplanar reformations were obtained. RADIATION DOSE: Total DLP: 182 mGy*cm Dose modulation, iterative reconstruction, and/or weight based adjustment of the mA/kV was utilized to reduce the radiation dose to as low as reasonably achievable. Discussion: Examination is limited without contrast. Lung bases: The heart is enlarged. There is bibasilar atelectasis with small bilateral pleural effusions. Abdomen: There is bilateral nonspecific perinephric fat stranding. There is no evidence of hydronephrosis or nephrolithiasis. The ureters are not dilated. A 3 cm simple cyst is noted in the right lobe of the liver. The liver, gallbladder, biliary tree, spleen, pancreas, and adrenal glands are unremarkable. The abdominal aorta is within normal limits. There is no bowel dilatation. The appendix is visualized and is air-filled and normal. Multiple diverticuli are present within the distal colon. There is no evidence of free fluid. Multiple mildly enlarged aortocaval and left para-aortic lymph nodes are present. Pelvis: A 2.6 cm stone is present within the bladder which is nondistended but appears to have diffuse wall thickening with surrounding fat stranding. The prostate contains multiple calcific effusions but is not enlarged. There is no evidence of free fluid or adenopathy. Bones and soft tissues: Degenerative changes are present throughout the lumbar spine without evidence of lytic or sclerotic lesion. IMPRESSION: 1. Large bladder stone with possible cystitis. 2. Colonic diverticulosis. 3. Mild retroperitoneal adenopathy of uncertain etiology. 4. Simple right hepatic cyst. Otherwise unremarkable noncontrast exam. Signed by: Karel Martinez on 08/26/2019 3:59 PM
[2019-08-26] MEDS ORDERED: HYOSCYAMINE 0.125 MG TAB PO PRN (17:00)
[2019-08-26] MEDS ORDERED: MORPHINE SULFATE 2 MG/ML SYR 1ML IV PRN (17:00)
[2019-08-26] MEDS ORDERED: SODIUM CHLORIDE FLUSH 10 ML SYR INJ PRN (17:00)
[2019-08-26] MEDS ORDERED: ONDANSETRON HCL INJ 2MG/ML 2ML 2 MG/ML VIAL IV PRN (17:00)
[2019-08-26] MEDS ORDERED: MORPHINE SULFATE INJ 4 MG/ML INJ 1ML IV PRN (17:15)
[2019-08-26 22:32] LABS: BASOPHILS # (AUTO) 0.1 (0.0-0.1); BASOPHILS % 1.3 % (0.0-1.0); EOSINOPHILS # (AUTO) 0.2 (0.0-0.4); EOSINOPHILS % 5.4 % (0.0-6.0); HEMATOCRIT 31.1 % (38.2-49.6); HEMOGLOBIN 9.9 g/dL (14.0-18.0); LYMPHOCYTES # (AUTO) 0.8 (1.0-3.2); LYMPHOCYTES % 20.4 % (18.0-39.1); MEAN CORPUSCULAR HEMOGLOBIN 29.7 pg (28-32); MEAN CORPUSCULAR HGB CONC 31.8 g/dL (31-35); MEAN CORPUSCULAR VOLUME 93.4 fL (81-99); MONOCYTES # (AUTO) 0.6 (0.2-0.8); MONOCYTES % 15.2 % (4.4-11.3); NEUTROPHILS # (AUTO) 2.2 (2.1-6.9); NEUTROPHILS % 57.2 % (38.7-80.0); PLATELET COUNT 203 x10e3/uL (140-360); RED BLOOD COUNT 3.33 x10e6/uL (4.3-5.7); RED CELL DISTRIBUTION WIDTH 16.6 % (11.7-14.4)
[2019-08-26 22:55] LABS: ALANINE AMINOTRANSFERASE 9 IU/L (0-55); ALBUMIN 2.5 g/dL (3.5-5.0); ALBUMIN/GLOBULIN RATIO 0.4 (0.8-2.0); ALKALINE PHOSPHATASE 58 IU/L (40-150); ANION GAP 8.1 mmol/L (8-16); BLOOD UREA NITROGEN 13 mg/dL (7-26); BUN/CREATININE RATIO 12 (6-25); CALCIUM 8.3 mg/dL (8.4-10.2); CARBON DIOXIDE 23 mmol/L (22-29); CHLORIDE 105 mmol/L (98-107); CREATININE, SERUM 1.06 mg/dL (0.72-1.25); EST GLOMERULAR FILTRATION RATE > 60 ML/MIN (60-); GLUCOSE 139 mg/dL (74-118); POTASSIUM 3.1 mmol/L (3.5-5.1); SODIUM 133 mmol/L (136-145)
[2019-08-27] VITALS (9 sets, daily range): BP systolic 133–167; BP diastolic 76–88
[2019-08-27 00:28] LABS: CLARITY,URINE CLOUDY (CLEAR); COLOR,URINE AMBER (YELLOW); LEUKOCYTE ESTERASE ,URINE TRACE (NEGATIVE); NITRITE,URINE POSITIVE (NEGATIVE)
[2019-08-27 00:29] LABS: BILIRUBIN,URINE MODERATE (NEGATIVE); KETONES,URINE TRACE (NEGATIVE); PROTEIN,URINE DIPSTICK 2+ (NEGATIVE); URINE UROBILINOGEN 1 mg/dL (0.2 - 1)
[2019-08-27 00:48] LABS: AMORPHOUS SEDIMENT,URINE FEW (FEW); BACTERIA,URINE MANY /HPF; EPITHELIAL CELLS,URINE FEW /LPF; RBC,URINE >50 /HPF (0-5); WBC,URINE (MAN) 21-50 /HPF (0-5)
[2019-08-27] MEDS ORDERED: POTASSIUM CHLORIDE 20 MEQ TAB CR PO STA (01:22)
[2019-08-27] MEDS ORDERED: CEFTRIAXONE SOD 1 GM/NS 50 ML 50 ML IV ONE (01:30)
--- NOTE | 2019-08-27 02:35 | NUR ---
PATIENT IS IN STABLE CONDITION, NO SIGNS OF DISTRESS NOTED. IS AT BEDSIDE AND PATIENT VOICES NO PAIN AT THIS TIME. THE PATIENT IS ENGLISH SPEAKING AND IV IS INTACT AND PATENT. BED IS IN LOWEST POSITION, BOTH SIDE RAILS ARE UP, CALL LIGHT WITHIN EASY REACH, WILL CONTINUE TO MONITOR.
--- NOTE | 2019-08-27 07:00 | NUR ---
BEDSIDE SHIFT REPORT RECEIVED FROM THE BIOLOGICAL SCIENCES INSTRUCTOR RN. EDUCATED PT ABOUT FALL PRECAUTIONS. CALL LIGHT WITH IN EASY REACH. INSTRUCTED PT TO USE CALL LIGHT FOR ALL THE NEEDS. PT VERBALIZED UNDERSTANDING. BED IS LOW AND LOCKED. SIDE RAILS X2. BED ALARM IS ON. AT BEDSIDE. PT DENIES NEEDS AT THIS TIME.
[2019-08-27 07:52] LABS: BASOPHILS # (AUTO) 0.1 (0.0-0.1); BASOPHILS % 1.8 % (0.0-1.0); EOSINOPHILS # (AUTO) 0.2 (0.0-0.4); EOSINOPHILS % 6.9 % (0.0-6.0); HEMATOCRIT 27.9 % (38.2-49.6); HEMOGLOBIN 8.9 g/dL (14.0-18.0); LYMPHOCYTES # (AUTO) 0.6 (1.0-3.2); LYMPHOCYTES % 18.3 % (18.0-39.1); MEAN CORPUSCULAR HEMOGLOBIN 29.3 pg (28-32); MEAN CORPUSCULAR HGB CONC 31.9 g/dL (31-35); MEAN CORPUSCULAR VOLUME 91.8 fL (81-99); MONOCYTES # (AUTO) 0.5 (0.2-0.8); MONOCYTES % 15.9 % (4.4-11.3); NEUTROPHILS # (AUTO) 1.9 (2.1-6.9); NEUTROPHILS % 56.5 % (38.7-80.0); PLATELET COUNT 176 x10e3/uL (140-360); RED BLOOD COUNT 3.04 x10e6/uL (4.3-5.7); RED CELL DISTRIBUTION WIDTH 16.6 % (11.7-14.4)
[2019-08-27 08:09] LABS: ANION GAP 7.6 mmol/L (8-16); BLOOD UREA NITROGEN 13 mg/dL (7-26); BUN/CREATININE RATIO 15 (6-25); CARBON DIOXIDE 23 mmol/L (22-29); CHLORIDE 106 mmol/L (98-107); CREATININE, SERUM 0.86 mg/dL (0.72-1.25); EST GLOMERULAR FILTRATION RATE > 60 ML/MIN (60-); GLUCOSE 84 mg/dL (74-118); POTASSIUM 3.6 mmol/L (3.5-5.1); SODIUM 133 mmol/L (136-145)
[2019-08-27] MEDS: FUROSEMIDE 40 MG TAB PO SCH (10:19)
[2019-08-27] MEDS: PANTOPRAZOLE SOD 40 MG TABEC PO SCH (10:19)
[2019-08-27] MEDS: METOPROLOL TARTRATE 50 MG TAB PO SCH ×2 (10:19→21:15)
[2019-08-27] MEDS: SUCRALFATE 1 GM/10 ML SUSP PO SCH ×3 (11:21→21:15)
--- NOTE | 2019-08-27 16:42 | History and Physical ---
PRIMARY CARE PHYSICIAN: Dr. Ender Davis. CONSULTANTS: 1. Dr. Jadiel Francisco. 2. Dr. Roberto. CHIEF COMPLAINT: Hematuria and urinary bladder stone. HISTORY OF PRESENT ILLNESS: The patient is an 83-year-old male with complicated medical problem. The patient recently had upper and lower endoscopy. He has severe blood loss anemia secondary to gastritis and diverticular disease. The patient was off Xarelto and pending for a Watchman procedure with Dr. Roberto. The patient, however, now came in with gross hematuria. His laboratories, urine show significant 4+ blood, nitrite, and wbc positive. The patient's CT scan of the abdomen and pelvis also shown that the patient has large urinary bladder stone with cystitis. Again, the patient has colonic diverticulosis with chronic bleed. The patient is pending for Watchman procedure. PAST MEDICAL HISTORY: Atrial fibrillation, chronic blood loss anemia, status post blood transfusion, now diagnosed with urinary bladder stone with gross hematuria and infection. Past medical history also consistent with coronary artery disease with previous bypass graft surgery, enlarged prostate, congestive heart failure, compensated. ALLERGIES: NO KNOWN ALLERGIES. MEDICATIONS: Home medications list is reviewed. REVIEW OF SYSTEMS: Gross hematuria. PHYSICAL EXAMINATION: VITAL SIGNS: Temperature is 97, blood pressure 147/76, pulse rate 96, and respirations 18. GENERAL: The patient is in no acute distress. He is awake. HEENT: Normocephalic and atraumatic. Anicteric. NECK: Supple grossly. PULMONARY: Clear. CARDIOVASCULAR: Irregularly irregular rate control. ABDOMEN: Soft. EXTREMITIES: No cyanosis or edema. NEUROLOGIC: No focal deficit. LABORATORY DATA: Sodium 133, potassium 3.6, chloride 106, bicarb 23, BUN 13, creatinine 0.8, and glucose 84. WBC 3.3, hemoglobin 8.9, hematocrit 27.9, and platelets is 176. IMPRESSION: 1. Gross hematuria with urinary tract infection. 2. Chronic blood loss anemia. 3. Atrial fibrillation. 4. Pending Watchman procedure. 5. Atherosclerotic disease. PLAN: The patient will need a Watchman procedure prior to his procedures with Dr. Jadiel Francisco for stone management. In the meantime, continue with antibiotic treatment. The patient is otherwise stable at this time. MD EMILIE Ordaz/SRINIVASAN /[id number]
--- NOTE | 2019-08-27 19:00 | NUR ---
BEDSIDE SHIFT REPORT GIVEN TO THE ASSOCIATE DIRECTOR FINANCE RN. PT DENIED FURTHER NEEDS.
--- NOTE | 2019-08-27 21:15 | NUR ---
PATIENT RESTING IN BED, BOTH EYES CLOSED, NO SIGNS OF DISTRESS NOTED. IS AT BEDSIDE AND PATIENT VOICES NO PAIN AT THIS TIME. THE PATIENT IS LITHUANIAN SPEAKING AND IV IS INTACT AND PATENT. BED IS IN LOWEST POSITION, BOTH SIDE RAILS ARE UP, CALL LIGHT WITHIN EASY REACH, WILL CONTINUE TO MONITOR.
[2019-08-28] VITALS (7 sets, daily range): BP systolic 109–151; BP diastolic 66–76
[2019-08-28] MEDS ORDERED: SODIUM CHLORIDE 0.9% 250ML 250 ML ONE (01:27)
[2019-08-28] MEDS: CEFTRIAXONE SOD 1 GM/NS 50 ML 50 ML IV SCH (01:37)
[2019-08-28 06:13] LABS: BASOPHILS # (AUTO) 0.1 (0.0-0.1); EOSINOPHILS # (AUTO) 0.2 (0.0-0.4); EOSINOPHILS % 6.4 % (0.0-6.0); HEMATOCRIT 28.2 % (38.2-49.6); HEMOGLOBIN 8.9 g/dL (14.0-18.0); LYMPHOCYTES # (AUTO) 0.8 (1.0-3.2); MEAN CORPUSCULAR HEMOGLOBIN 29.2 pg (28-32); MEAN CORPUSCULAR HGB CONC 31.6 g/dL (31-35); MEAN CORPUSCULAR VOLUME 92.5 fL (81-99); MONOCYTES # (AUTO) 0.6 (0.2-0.8); MONOCYTES % 16.5 % (4.4-11.3); NEUTROPHILS # (AUTO) 1.8 (2.1-6.9); NEUTROPHILS % 51.3 % (38.7-80.0); PLATELET COUNT 169 x10e3/uL (140-360); RED BLOOD COUNT 3.05 x10e6/uL (4.3-5.7); RED CELL DISTRIBUTION WIDTH 16.5 % (11.7-14.4)
[2019-08-28 06:27] LABS: ANION GAP 9.2 mmol/L (8-16); BLOOD UREA NITROGEN 14 mg/dL (7-26); BUN/CREATININE RATIO 16 (6-25); CALCIUM 7.8 mg/dL (8.4-10.2); CARBON DIOXIDE 24 mmol/L (22-29); CHLORIDE 108 mmol/L (98-107); EST GLOMERULAR FILTRATION RATE > 60 ML/MIN (60-); GLUCOSE 85 mg/dL (74-118); POTASSIUM 3.2 mmol/L (3.5-5.1); SODIUM 138 mmol/L (136-145)
[2019-08-28] MEDS ORDERED: POTASSIUM CHLORIDE 10MEQ EA PO SCH (09:00)
[2019-08-28] MEDS: SUCRALFATE 1 GM/10 ML SUSP PO SCH ×4 (09:09→21:29)
[2019-08-28] MEDS: FUROSEMIDE 40 MG TAB PO SCH (09:09)
[2019-08-28] MEDS: METOPROLOL TARTRATE 50 MG TAB PO SCH ×2 (09:09→21:30)
[2019-08-28] MEDS: PANTOPRAZOLE SOD 40 MG TABEC PO SCH (09:09)
[2019-08-28 09:56] LABS: EOSINOPHILS % (MANUAL) 4 % (0-7); LYMPHOCYTES % (MANUAL) 25 % (19-48); MONOCYTES % (MANUAL) 17 % (3.4-9.0); NEUTROPHILS % (MANUAL) 54 % (40-74)
[2019-08-28 09:58] LABS: PLATELET ESTIMATE ADEQUATE; PLATELET MORPHOLOGY COMMENT NORMAL; RBC MORPHOLOGY COMMENT NORMAL
[2019-08-28] MEDS ORDERED: POTASSIUM CHLORIDE 20 MEQ TAB CR PO NR (11:00)
--- NOTE | 2019-08-28 15:20 | NUR ---
Visit made by the SHAY Pryorlain. Investigator Internal Affairs provided pastoral presence, prayer, hospitality, and supportive listening. Investigator Internal Affairs informed pt/family of the scope of [employer] Clerk Services and availability. RENETTA GERARDO Investigator Internal Affairs Spiritual Care Department O: [phone] Pager: [phone] ([phone] number calling from)
--- NOTE | 2019-08-28 17:04 | Consultation ---
DATE OF CONSULTATION: 08/28/2019 CHIEF COMPLAINT: Gross hematuria. HISTORY OF PRESENT ILLNESS: Chin Mcbride is an 83-year-old male with primary history of CAD status post CABG in 2013, hypertension, hyperlipidemia, atrial fibrillation, on Xarelto at home, who admitted with gross hematuria. His laboratories and urine shows significant 4+ blood, nitrite and wbc's positive. CT scan of the abdomen and pelvis also shown that the patient has large urinary bladder stone with cystitis. The patient was recently discharged from this facility for GI bleed about two weeks ago, now back for gross hematuria. PAST MEDICAL HISTORY: CAD with CABG in 2013, atrial fibrillation, hypertension, enlarged prostate, and hyperlipidemia. PAST SURGICAL HISTORY: CABG in 2014. SOCIAL HISTORY: The patient is nonsmoker, nonalcohol use, no illicit drug use. ALLERGIES: NO KNOWN ALLERGIES. MEDICATIONS: He is taking at home finasteride 5 mg, potassium, benzonatate 100 mg, lovastatin, lisinopril, furosemide, metoprolol, and Xarelto. PHYSICAL EXAMINATION: VITAL SIGNS: Temperature 96.4, pulse 82, BP 135/66, respiration rate 16, and SpO2 of 98. Weight of 119 pounds. BMI 19.20. GENERAL APPEARANCE: The patient is well nourished, in no acute distress. NECK: Supple. Negative JVD. Negative thyromegaly. LUNGS: Clear to auscultation bilaterally. No wheezing. No rhonchi. CARDIOVASCULAR: S1 and S2 audible. ABDOMEN: Soft, nondistended, nontender. Active bowel sounds. EXTREMITIES: No edema. Pulses are palpable. NEUROLOGICAL: Awake, alert, and oriented. Irish speaking. HEENT: Normocephalic, atraumatic. Pupils are reactive and sclerae nonicteric. ASSESSMENT AND PLAN: History of CAD, CABG in 2013, echo, EF of 55% to 60% in 08/2019, hypertension, hyperlipidemia, atrial fibrillation, on Xarelto at home. Off Xarelto since recent hospitalization secondary to GI bleed. So, we will continue to hold off on any anticoagulation. Continue metoprolol for rate control. We will consult EP for Watchman procedure. The patient is cleared for surgery. We will continue to follow. Thank you for the consultation. Dictated by Malena Peña NP MD CHAZ Guerrier/SRINIVASAN /[id number]
--- NOTE | 2019-08-28 18:40 | NUR ---
Resting in bed side rails upx2, call light within reach, at bedside. No s/s of acute distress noted. Report to be given to oncoming nurse of patient's status.
--- NOTE | 2019-08-28 21:12 | Consultation ---
DATE OF CONSULTATION: 08/28/2019 Initial EP Consultation REASON FOR CONSULTATION: Atrial fibrillation and bleeding. HISTORY OF PRESENT ILLNESS: Mr. Mcbried is an 83-year-old male with a history of persistent atrial fibrillation as well as history of GI bleed, who presented to the hospital with gross hematuria. The patient had been medically optimized and EP was consulted to further assess for the patient's candidacy for Watchman procedure. Of note, the patient has been seen by Dr. Roberto and had planned to have the procedure scheduled. He currently states that he is feeling fine and has not been having hematuria. REVIEW OF SYSTEMS: He denies having fevers, chills, lightheadedness, dizziness, chest pains, palpitations, shortness of breath, coughing, swollen lymph nodes in the neck or groin, discharge from the eyes, mouth, and nose, abdominal pain, nausea, vomiting, dysuria, hematuria, musculoskeletal pain or joint swelling, numbness, tingling, weakness, swelling of the legs or arms, skin rashes, bruising, ulcers, depression or anxiety. PAST MEDICAL HISTORY: As noted above. Congestive heart failure and urinary tract infection. PAST SURGICAL HISTORY: No cardiac history. SOCIAL HISTORY: The patient does not smoke any cigarettes, drink any alcohol, or use any illicit drugs. ALLERGIES: NO KNOWN DRUG ALLERGIES. MEDICATIONS: Lasix, Rocephin, metoprolol tartrate, pantoprazole, and sucralfate. PHYSICAL EXAMINATION: VITAL SIGNS: Temperature is 96.8, heart rate is 83, respiratory rate is 12, blood pressure 125/70. GENERAL: No acute distress. Alert, awake, and oriented x3. HEENT: Normocephalic and atraumatic. Pupils are equal, round, and reactive to light. LYMPH: No supraclavicular or submandibular lymphadenopathy appreciated. CVS: S1 and S2. RESPIRATORY: Good air entry globally. No wheezing. GI: Abdomen is soft and nontender. : No bladder fullness. No CVA tenderness. MUSCULOSKELETAL: No effusions or erythema noted in the knees or elbows bilaterally. NEUROLOGIC: 5/5 strength in all extremities bilaterally. No deficits. EXTREMITIES: No edema in lower extremities or upper extremities bilaterally. SKIN: No bruising or ulcers noted. PSYCH: Mood is normal. Answers questions appropriately. ASSESSMENT AND PLAN: Mr. Mcbride is an 83-year-old man with a history of persistent atrial fibrillation, having a history of gastrointestinal bleed, presented to the hospital with hematuria. The patient will be medically optimized and EP was consulted to assess for the candidacy for the Watchman procedure. Persistent atrial fibrillation, elevated CHADS-VASc score, however, the patient also has an elevated HAS-BLED score and is a good candidate who would benefit from Watchman procedure. The patient does follow up with Dr. Roberto in the clinic and he can follow up with Dr. Roberto after he is discharged from the hospital for further scheduling of the Watchman procedure. This plan has been discussed with the patient, who is agreeable. Thank you very much for this consultation. Please feel free to call if you have any questions. DO BILLIE MICHAELS/SRINIVASAN /[id number] MTDD
[2019-08-29 00:43] VITALS: BP 143/73
[2019-08-29] MEDS: CEFTRIAXONE SOD 1 GM/NS 50 ML 50 ML IV SCH (01:26)
[2019-08-29 05:35] VITALS: BP 109/67
[2019-08-29] MEDS: SUCRALFATE 1 GM/10 ML SUSP PO SCH ×4 (07:30→21:00)
[2019-08-29 07:58] VITALS: BP 155/81
[2019-08-29] MEDS: FUROSEMIDE 40 MG TAB PO SCH (09:00)
[2019-08-29] MEDS: PANTOPRAZOLE SOD 40 MG TABEC PO SCH (09:00)
[2019-08-29] MEDS: METOPROLOL TARTRATE 50 MG TAB PO SCH ×2 (10:15→22:15)
[2019-08-29] MEDS ORDERED: IOPAMIDOL 300MG/ML 50ML INFUS..BTL IV ONE (11:13)
[2019-08-29] MEDS ORDERED: B&O 60MG R/S 60 MG SUPP PR ONE (11:13)
[2019-08-29] MEDS ORDERED: HALOPERIDOL LACTATE 5 MG/ML VIAL ONE (11:30)
[2019-08-29] MEDS ORDERED: FENTANYL CITRATE/PF 100MCG/2 ML INJ ONE ×2 (12:39→13:07)
[2019-08-29] MEDS ORDERED: B&O 60MG R/S 60 MG SUPP PR PRN (12:45)
[2019-08-29] MEDS ORDERED: MORPHINE SULFATE INJ 10 MG/ML ONE (12:47)
[2019-08-29] MEDS ORDERED: LIDOCAINE HCL 2% LOCAL INJ 5 ML SDV VIAL INJ ONE (12:50)
[2019-08-29] MEDS ORDERED: SEVOFLURANE INHAL SOLN 250 ML PEN BTL ONE (12:50)
[2019-08-29] MEDS ORDERED: ONDANSETRON HCL INJ 2MG/ML 2ML 2 MG/ML VIAL ONE (12:50)
[2019-08-29] MEDS ORDERED: PROPOFOL IV EMULSION 10 MG/ML 20 ML VIAL ONE (12:50)
[2019-08-29] MEDS ORDERED: LABETALOL HCL 5 MG/ML 20ML VIAL ONE (12:50)
--- NOTE | 2019-08-29 14:45 | NUR ---
pt vital signs stable at this time. 98. T ,b/p 135/79 ,r 18, ra 92%
--- NOTE | 2019-08-29 14:45 | NUR ---
pt fell to floor from bed, pt bed had 3 rail up pt post surgery, pt with at bedside, pt bed alarm was on zone 2, and pt was wearing yellow hospital socks, pt has no visible injuries, was called ordered sitter and pt daughter was called. call light in reach, will cont to monitor.
[2019-08-29 15:53] VITALS: BP 135/79
--- NOTE | 2019-08-29 19:15 | NUR ---
Received report from morning nurse. Pt alert to name lying in bed HOB 45 degrees. No s/s of pain at this time. Call light within reach. Bed low and locked. Family at bedside. Will continue to monitor.
--- NOTE | 2019-08-29 19:24 | NUR ---
report given to oncoming nurse, pt stable at this time.
[2019-08-29] MEDS ORDERED: ACETAMINOPHEN 325 MG TAB PO PRN (19:45)
[2019-08-29] MEDS ORDERED: VANCOMYCIN 1GM/NS 250 ML 250 ML IV ONE (20:00)
[2019-08-29] MEDS ORDERED: METOPROLOL TARTRATE INJ 1 MG/ML VIAL IV SCH (20:00)
[2019-08-29] MEDS ORDERED: ACETAMINOPHEN 1000 MG/100 ML IV PRN (21:00)
[2019-08-29 21:24] VITALS: BP 158/96
[2019-08-30] MEDS: CEFTRIAXONE SOD 1 GM/NS 50 ML 50 ML IV SCH (01:30)
[2019-08-30] MEDS: METOPROLOL TARTRATE INJ 1 MG/ML VIAL IV SCH ×2 (01:52→08:34)
[2019-08-30 03:21] VITALS: BP 143/78
[2019-08-30 07:06] LABS: BASOPHILS # (AUTO) 0.1 (0.0-0.1); BASOPHILS % 0.9 % (0.0-1.0); EOSINOPHILS # (AUTO) 0.1 (0.0-0.4); EOSINOPHILS % 0.7 % (0.0-6.0); HEMATOCRIT 30.7 % (38.2-49.6); HEMOGLOBIN 9.5 g/dL (14.0-18.0); LYMPHOCYTES # (AUTO) 1.1 (1.0-3.2); LYMPHOCYTES % 12.8 % (18.0-39.1); MEAN CORPUSCULAR HEMOGLOBIN 29.2 pg (28-32); MEAN CORPUSCULAR HGB CONC 30.9 g/dL (31-35); MEAN CORPUSCULAR VOLUME 94.5 fL (81-99); MONOCYTES # (AUTO) 1.1 (0.2-0.8); MONOCYTES % 12.5 % (4.4-11.3); NEUTROPHILS # (AUTO) 6.5 (2.1-6.9); NEUTROPHILS % 72.7 % (38.7-80.0); PLATELET COUNT 188 x10e3/uL (140-360); RED BLOOD COUNT 3.25 x10e6/uL (4.3-5.7); RED CELL DISTRIBUTION WIDTH 16.7 % (11.7-14.4)
--- NOTE | 2019-08-30 07:15 | NUR ---
PT ASLEEP RESP EVEN AND UNLABORED, RESP EVEN AND UNLABORED AT THIS TIME, PT AROUSAL TO NAME, PT ABLE TO MAKE NEEDS KNOWN, FAMILY MEMBERS AT BEDSIDE. SITTER AT BED SIDE , CALL LIGHT IN REACH.
[2019-08-30 07:28] LABS: ANION GAP 11.9 mmol/L (8-16); CALCIUM 8.3 mg/dL (8.4-10.2); CREATININE, SERUM 1.23 mg/dL (0.72-1.25); POTASSIUM 3.9 mmol/L (3.5-5.1)
[2019-08-30 08:17] VITALS: BP 154/110
[2019-08-30] MEDS: FUROSEMIDE 40 MG TAB PO SCH (08:34)
[2019-08-30] MEDS: PANTOPRAZOLE SOD 40 MG TABEC PO SCH (08:34)
[2019-08-30] MEDS: SUCRALFATE 1 GM/10 ML SUSP PO SCH ×4 (08:34→21:45)
[2019-08-30] MEDS: POTASSIUM CHLORIDE 10MEQ EA PO SCH (08:34)
[2019-08-30] MEDS ORDERED: METOPROLOL TARTRATE 50 MG TAB PO ONE (10:15)
[2019-08-30] MEDS: METOPROLOL TARTRATE 50 MG TAB PO SCH ×2 (10:15→22:08)
[2019-08-30] MEDS ORDERED: HYDRALAZINE HCL 20 MG/ML VIAL IV PRN (11:00)
[2019-08-30] MEDS ORDERED: SODIUM CHLORIDE 0.9% 1000ML 500 ML IV ONE (11:00)
--- NOTE | 2019-08-30 11:11 | NUR ---
urine culture sent.
[2019-08-30 11:40] VITALS: BP 154/110
[2019-08-30] MEDS: SODIUM CHLORIDE 0.9% 1000ML 1,000 ML IV SCH (12:00)
--- NOTE | 2019-08-30 12:30 | Diagnostic Imaging Report ---
EXAMINATION: PA and lateral views of the chest. COMPARISON: Portable chest 11/17/2017 CLINICAL HISTORY: Fever DISCUSSION: Lines/tubes: None. Lungs: Lungs are well-inflated. Bilateral interstitial opacities extending from the tato. Increased density in the left retrocardiac region with partial obscuration of the left hemidiaphragm. Pleura: Likely small left pleural effusion Heart and mediastinum: Moderately enlarged cardiac silhouette. Central venous congestion Bones and soft tissues: No acute bony abnormalities. Degenerative changes in the thoracic spine IMPRESSION: 1. Moderately enlarged cardiac silhouette, bilateral interstitial pulmonary edema with small left pleural effusion. Findings suggest decompensated CHF. 2. Increased density in the left retrocardiac region and partial obscuration of the left hemidiaphragm may reflect atelectasis or pneumonia, in the appropriate clinical setting. Signed by: Dr. Lm Carney M.D. on 08/30/2019 12:27 PM
[2019-08-30 12:53] VITALS: BP 148/84
--- NOTE | 2019-08-30 13:32 | NUR ---
STEVE REMOVED AT THIS TIME PT TOLERATED WELL.
--- NOTE | 2019-08-30 14:10 | NUR ---
PT VOIDED 50 CC.
--- NOTE | 2019-08-30 15:05 | NUR ---
Visit made by the Spiritual Care Department Pastoral Visitor, Eunice Eller. PV provided pastoral presence, hospitality, prayer, and supportive listening. Pastoral Visitor informed pt/family of the scope of [employer] and availability. RENETTA GERARDO [employer] Sales Manager Spiritual Care Department O: [phone] Pager: [phone] ([phone] number calling from)
[2019-08-30 17:29] VITALS: BP 116/75
--- NOTE | 2019-08-30 19:20 | NUR ---
Received report from morning nurse. Pt alert to name, lying in bed HOB 45 degrees. No s/s of pain at this time. 1:1 sitter and family at bedside. Call light within reach. Bed low and locked. Will continue to monitor.
--- NOTE | 2019-08-30 19:31 | NUR ---
REPORT GIVEN TO ONCOMING NURSE, PT STABLE AT THIS TIME.
[2019-08-30] MEDS: QUETIAPINE FUMARATE 25 MG TAB PO PRN (21:50)
[2019-08-31] VITALS (9 sets, daily range): BP systolic 119–157; BP diastolic 67–91
[2019-08-31] MEDS: CEFTRIAXONE SOD 1 GM/NS 50 ML 50 ML IV SCH (01:28)
[2019-08-31] MEDS: SODIUM CHLORIDE 0.9% 1000ML 1,000 ML IV SCH (04:00)
[2019-08-31] MEDS ORDERED: METOPROLOL TARTRATE INJ 1 MG/ML VIAL IV PRN (04:00)
--- NOTE | 2019-08-31 06:34 | NUR ---
Pt lying quietly in bed, no distress noted, 1:1 sitter and family at bedside.
[2019-08-31] MEDS: POTASSIUM CHLORIDE 10MEQ EA PO SCH (08:07)
[2019-08-31] MEDS: FUROSEMIDE 40 MG TAB PO SCH (08:07)
[2019-08-31] MEDS: PANTOPRAZOLE SOD 40 MG TABEC PO SCH (08:07)
[2019-08-31] MEDS: METOPROLOL TARTRATE 50 MG TAB PO SCH ×2 (08:07→21:42)
[2019-08-31] MEDS: SUCRALFATE 1 GM/10 ML SUSP PO SCH ×4 (08:07→21:42)
--- NOTE | 2019-08-31 13:38 | NUR ---
Nutrition Screen Note RD Recommendation for Physician: -Continue current diet per MD. -Recommend to re-weigh the pt- weight from 08/22 was 171 lbs and now pt is 125 lbs 5 days later Plan of Care: RD following, monitoring for tolerance and adequacy. Nutrition reason for involvement: LOS-early Primary Diagnose(s): Cystitis, urinary bladder stone PMH: Atrial fibrillation, chronic blood loss anemia, status post blood transfusion, now diagnosed with urinary bladder stone with gross hematuria and infection. Past medical history also consistent with coronary artery disease with previous bypass graft surgery, enlarged prostate, congestive heart failure, compensated. Ht: 66 in Wt: 125 lb BMI: 20.2 kg/m2 IBW: [address] Assessment: 08/31: 83 YOM admitted for cystitis with PMH listed above. The pt was seen resting in bed with at bedside. Both only speak Mongolian, sitter was at bedside as well. reported the pts appetite has been good and denied N/V, LBM: not recorded. Pt has been consuming 75-100% of his meals per FS. Pt had cystoscopy retrograde phylogram procedure on 08/31. Recommended to re weigh the pt to get accurate weight, otherwise pt appears to be meeting his calorie and protein needs. Chart reviewed. Labs and meds reviewed. Will continue to monitor. Current Diet: cardiac Malnutrition Evaluation 08/31 The patient does not meet criteria for a specified degree of malnutrition at this time. Will re-evaluate at follow-up as appropriate. Diet Education Needs Assessment: Diet education not indicated at this time. Diet Adequacy: Meeting calorie needs, Meeting protein needs Nutrition Care Level: low Signed: Jade Roblero, NORBERT, LD
[2019-08-31] MEDS: QUETIAPINE FUMARATE 25 MG TAB PO PRN ×2 (14:43→21:42)
--- NOTE | 2019-08-31 15:55 | NUR ---
Received order for home health services. Spoke to pt's at bedside. She is agreeable to have home health come if Surinamese speaking staff is available. Gave CM permission to use any company that is in network with insurance. Choice letter signed for [facility], [facility], and [facility]. Copy to pt's with companies contact information. Informed her referral will be sent to [facility] first. IMM letter delivered and discussed. verbalized understanding. Signed copy placed in chart. Copy to pt's . called and spoke with Leona with intake at [facility]. States they have Surinamese speaking nurse and have some PTs that cover the area that speak algerian. Referral was faxed to [phone] / . Informed of anticipated dc for tomorrow.
--- NOTE | 2019-08-31 19:15 | NUR ---
Report given to oncoming nurse of patient's status. No s/s of acute distress noted. Side rails upx3, call light within reach, at bedside, sitter at bedside.
--- NOTE | 2019-08-31 19:20 | NUR ---
Received the patient in report.Lyeing comfortably in the bed.sitter at bed side.
[2019-08-31] MEDS ORDERED: ONDANSETRON HCL 4 MG ORAL DISINTEGRATING TAB PO PRN (21:45)
[2019-09-01] MEDS: CEFTRIAXONE SOD 1 GM/NS 50 ML 50 ML IV SCH (01:32)
--- NOTE | 2019-09-01 01:33 | NUR ---
Assessment done.no resp.distress.agitated.medicated with seroquel po.resting in the bed.sitter with pt.bed locked and in lowest position.bed alarm on.
[2019-09-01 03:51] VITALS: BP 152/89
[2019-09-01] MEDS: QUETIAPINE FUMARATE 25 MG TAB PO PRN (04:25)
[2019-09-01 05:40] LABS: BASOPHILS # (AUTO) 0.1 (0.0-0.1); EOSINOPHILS # (AUTO) 0.3 (0.0-0.4); EOSINOPHILS % 5.3 % (0.0-6.0); HEMATOCRIT 33.3 % (38.2-49.6); HEMOGLOBIN 10.3 g/dL (14.0-18.0); LYMPHOCYTES # (AUTO) 1.3 (1.0-3.2); LYMPHOCYTES % 20.6 % (18.0-39.1); MEAN CORPUSCULAR HGB CONC 30.9 g/dL (31-35); MEAN CORPUSCULAR VOLUME 93.8 fL (81-99); MONOCYTES # (AUTO) 0.7 (0.2-0.8); MONOCYTES % 10.9 % (4.4-11.3); NEUTROPHILS # (AUTO) 3.8 (2.1-6.9); NEUTROPHILS % 61.9 % (38.7-80.0); PLATELET COUNT 188 x10e3/uL (140-360); RED BLOOD COUNT 3.55 x10e6/uL (4.3-5.7); RED CELL DISTRIBUTION WIDTH 16.2 % (11.7-14.4)
[2019-09-01 06:03] LABS: ANION GAP 11.3 mmol/L (8-16); BLOOD UREA NITROGEN 12 mg/dL (7-26); BUN/CREATININE RATIO 12 (6-25); CALCIUM 8.2 mg/dL (8.4-10.2); CARBON DIOXIDE 25 mmol/L (22-29); CHLORIDE 103 mmol/L (98-107); CREATININE, SERUM 0.97 mg/dL (0.72-1.25); EST GLOMERULAR FILTRATION RATE > 60 ML/MIN (60-); GLUCOSE 93 mg/dL (74-118); POTASSIUM 3.3 mmol/L (3.5-5.1); SODIUM 136 mmol/L (136-145)
--- NOTE | 2019-09-01 06:55 | NUR ---
Bed side shift report given to the oncoming RN.stable condition.
[2019-09-01 08:09] VITALS: BP 154/86
[2019-09-01 08:13] VITALS: BP 154/86
[2019-09-01] MEDS: PANTOPRAZOLE SOD 40 MG TABEC PO SCH (08:18)
[2019-09-01] MEDS: POTASSIUM CHLORIDE 10MEQ EA PO SCH (08:18)
[2019-09-01] MEDS: SUCRALFATE 1 GM/10 ML SUSP PO SCH ×2 (08:18→12:30)
[2019-09-01] MEDS: FUROSEMIDE 40 MG TAB PO SCH (08:18)
[2019-09-01] MEDS: METOPROLOL TARTRATE 50 MG TAB PO SCH (09:22)
[2019-09-01] MEDS ORDERED: ZOFRAN4 MG SL (11:21)
[2019-09-01] MEDS ORDERED: CIPRO250 MG PO (11:21)
--- NOTE | 2019-09-01 11:36 | NUR ---
Spoke with Leona with intake at [facility]. They will be able to see pt on 09/03/19 HOME HEALTH DISCHARGE NOTE PATIENT ADDRESS WHERE SERVICE WILL BE RECEIVED: [place] [address] PATIENT CONTACT NUMBER: [phone] NAME OF HOME HEALTH COMPANY: [facility] TELEPHONE/FAX NUMBER OF COMPANY: P [phone] / F [phone] ADDRESS OF [employer]: [address] [place] [address] [place] [address] SERVICES TO RECEIVE: SN, PT, OT ANTICIPATED DATE SERVICES WILL BEGIN: September 03, 2019 Please call the company above if you have not received a call to schedule a home visit within 24 hours of discharge.
[2019-09-01] MEDS ORDERED: POTASSIUM CHLORIDE 10MEQ EA PO ONE (12:00)
[2019-09-01 12:27] VITALS: BP 116/77
--- NOTE | 2019-09-01 12:47 | NUR ---
Left FA IV discontinued. No signs of infiltration noted. 2x2 gauze and tape placed. Taken via wheelchair by PCT to personal car.Accompanied by son and . AAOX3 to time, person, place. Respirations even and unlabored. Denies pain. Discharge instructions, rx, and all personal belongings taken with patient.
--- NOTE | 2019-09-01 12:55 | Discharge Summary ---
PRIMARY CARE PHYSICIAN: Dr. Ender Davis. CONSULTANTS: 1. Dr. Jadiel Francisco. 2. Dr. Etienne Morataya. 3. Dr. Bacilio Roberto. FINAL DIAGNOSES: 1. Large urinary bladder stone associated with pain, hematuria, and infection, status post cystoscopy with stone management. 2. Status post acute psychosis secondary to infection with toxic encephalopathy, resolved. 3. Baseline atrial fibrillation, awaiting for Watchman procedures. 4. Baseline chronic gastrointestinal bleed, therefore no anticoagulation treatment. SUMMARY: An 83-year-old male recently discharged and then came back to the hospital because he has gross hematuria associated with large urinary bladder stone with obstruction and infection. The patient underwent cystoscopy after clearing with Dr. Etienne Morataya. The patient did receive a stone management. He did have cystolithotripsy and cystogram of the urinary bladder stone. He had a recurrent urinary tract infection. He had a huge urinary bladder stone that managed. He is doing much better now. He is urinating well. He is stable. The patient will discharge home today with Cipro 250 mg twice a day for 7 days and Zofran ODT p.r.n. for nausea and vomiting. The patient is to follow up with Dr. Jadiel Francisco for postoperative care, follow up with his family physician, Dr. Ender Davis for routine visit and then also follow up with Dr. Etienne Morataya for set up for the Watchman procedure that will be done by Dr. Bacilio Roberto. The patient is stable and discharged today. All instructions given. The patient will be going home with home health. He will be followed closely as an outpatient as recommended. MD EMILIE Ordaz/SRINIVASAN /[id number]
--- NOTE | 2019-10-12 06:46 | Operative Report ---
DATE OF PROCEDURE: 08/29/2019 SURGEON: Jadiel Francisco MD PREOPERATIVE DIAGNOSES: 1. Cystolithiasis. 2. Urinary tract infection. 3. Hematuria. POSTOPERATIVE DIAGNOSES: 1. Cystolithiasis. 2. Urinary tract infection. 3. Hematuria. OPERATIONS PERFORMED: 1. Cystourethroscopy with bilateral ureteral catheterization and retrograde ureteropyelography (separate procedure performed for hematuria and urinary tract infections). 2. Interpretation of retrograde ureteropyelography. 3. Supervision of fluoroscopy, no radiologist present. 4. Cystolitholapaxy (separate procedure performed for the cystolithiasis). 5. Interpretation of cystography. ANESTHESIA: General. COMPLICATIONS: None. CLINICAL SUMMARY: Please refer to consultation dictation from same hospitalization. OPERATIVE PROCEDURE IN DETAIL: Informed consent was verified. Chin Mcbride was properly identified, taken to the operating room, placed on the cystoscopy table in supine position. Anesthesia was uneventfully begun. The patient was then carefully and gently repositioned in dorsal lithotomy position with all pressure points well padded. His genitalia were prepared and draped in usual sterile fashion. The cystoscope sheath with the visual obturator in place was atraumatically inserted into the patient's urethra, was guided unremarkable, urethra passed normal sphincteric region through the prostate bed, which was significant for visual obstructing BPH. We entered the patient's bladder where there was a very large stone. We utilized a 1000 micron fiber during this case. An 8-Belarusian catheter was used to cannulate each ureter and retrograde ureteral pyelograms were performed. Interpretation of retrograde ureteropyelography contrast was instilled in a retrograde fashion bilaterally. There were no tumors, no stones, and no diverticula. Unobstructed drainage was observed bilaterally fluoroscopically. There was a stone noted within the bladder, but there were no upper tract stones noted. The 1000 micron holmium laser fiber was utilized to progressively fragment this very large stone until it was all in small fragments. We then evacuated these fragments, which was a significant amount of stone burden. The cystoscope was withdrawn. A Crowell catheter was placed. It was irrigated to and fro to ensure it worked properly. Contrast was then injected and performing cystogram. Interpretation of cystography, contrast was instilled in retrograde fashion bilaterally with Crowell catheter. The bladder was trabeculated. No filling defects were present following cystolitholapaxy. Foley catheter balloon was in good position and inflated in the patient's bladder. The patient was then uneventfully reversed from anesthesia and taken to recovery room in stable condition. There were no complications to the procedure. The patient tolerated the procedure well. We will proceed with ongoing inpatient care and of course ongoing urological followup. A transurethral resection of the prostate may be required. This patient may have had a previous transurethral resection of prostate. Jadiel Francisco MD [place]/MODL /[id number]
--- NOTE | 2019-10-20 02:10 | Consultation ---
DATE OF CONSULTATION: 08/27/2019 Urology Consultation REASON FOR CONSULTATION: Cystolithiasis. HISTORY OF PRESENT ILLNESS: Chin Mcbride is an 83-year-old man who was found to have a bladder stone, urinary tract infection, gross hematuria. He was admitted for further management. The patient has had a urine culture that was sent. PAST MEDICAL AND SURGICAL HISTORY: 1. 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 2. Pending watchman procedure. 3. Atrial fibrillation. 4. Status post blood transfusions. 5. Coronary artery disease, status post coronary artery bypass surgery. 6. BPH. 7. Congestive heart failure that is compensated. ALLERGIES: NONE KNOWN. CURRENT MEDICATIONS: Please refer to the MAR. SOCIAL HISTORY: The patient denies current smoking, ethanol, or drug use. REVIEW OF SYSTEMS: Discussed as above in history of present illness, past medical history, otherwise negative for all systems. PHYSICAL EXAMINATION: GENERAL: Elderly male, lying in bed, in no apparent distress. He is currently afebrile. VITAL SIGNS: Currently stable. ABDOMEN: Soft, nondistended, nontender without costovertebral angle tenderness. For the remaining physical examination systems, please refer to the admission history and physical in the chart. LABORATORY STUDIES: The patient's white blood cell count was low at 3870 and subsequently was found to be 3340, hemoglobin 8.9, and platelets 176,000. The patient's creatinine was normal at 0.86. His calcium is low at 8. Urinalysis significant for greater than 50 RBCs, 21-50 WBCs and many bacteria. Urine culture is pending. CT scanning of the abdomen and pelvis was performed as without contrast revealed a large bladder stone with cystitis. ASSESSMENT: 1. Cystolithiasis. 2. Urinary tract infection. 3. Gross hematuria. 4. Leukopenia. 5. Anemia. 6. Hyponatremia. 7. Hypokalemia. 8. Hypocalcemia. PLAN: 1. Await the urine culture and sensitivity and adjusting the patient's antibiotics accordingly. 2. Once we have treated the patient's infection with culture specific antibiotics we will plan to take the patient to the operating room for cystolitholapaxy, cystoscopy and retrograde as an indicated procedures. Thank you much for involving us in care of your patient. We will be happy to follow him along with you. MD ALTHEA Farias/SRINIVASAN /[id number] cc: MD Ender Farias MD
== END 2019-09-01 12:47 | disposition home or self-care (01) | DRG 693 ==
LOC: ER 14:14 → ERHOLD 16:59 → MED/SURG2 08-27 02:04
PROVIDERS: ADMIT Internal Medicine; ATTEND Internal Medicine
PROC: BT141ZZ Fluoroscopy of Kidneys, Ureters and Bladder using Low Osmolar Contrast (ICD-10-PCS; 2019-08-29)
PROC: 0TCB8ZZ Extirpation of Matter from Bladder, Via Natural or Artificial Opening Endoscopic (ICD-10-PCS; 2019-08-29)
PROC: 0T788ZZ Dilation of Bilateral Ureters, Via Natural or Artificial Opening Endoscopic (ICD-10-PCS; principal; 2019-08-29 11:00)
DX: N21.0 Calculus in bladder (principal); G92 Toxic encephalopathy; N39.0 Urinary tract infection, site not specified; Z68.1 Body mass index [BMI] 19.9 or less, adult; K92.2 Gastrointestinal hemorrhage, unspecified; E87.1 Hypo-osmolality and hyponatremia; D50.0 Iron deficiency anemia secondary to blood loss (chronic); I70.90 Unspecified atherosclerosis; R63.6 Underweight; I25.10 Atherosclerotic heart disease of native coronary artery without angina pectoris; Z95.1 Presence of aortocoronary bypass graft; I48.0 Paroxysmal atrial fibrillation; E78.5 Hyperlipidemia, unspecified; R31.9 Hematuria, unspecified; R31.0 Gross hematuria; E83.51 Hypocalcemia; E87.6 Hypokalemia; D72.819 Decreased white blood cell count, unspecified; I11.0 Hypertensive heart disease with heart failure; I50.9 Heart failure, unspecified
CPT/HCPCS: 36415; 71046; 74176; 76000; 80048; 80053; 81001; 85025; 87040; 87086; 88300; 99284; C1758; J0696; J1630; J2001; J2270; J2405; J3010; J3370; J7030; J7050

== ENCOUNTER 2019-10-29 18:20 | Emergency (ER) | payer MEDICARE, OTHER ==
[~2019-10-29] VITALS: Ht 167.6 cm; Wt 56.7 kg
[~2019-10-29 18:20] MED LIST changes: +CIPRO250 MG PO; +ZOFRAN4 MG SL
[2019-10-29] MEDS ORDERED: ALBUTEROL/IPRATROPIUM 3 ML NEB NEB ONE (18:45)
[2019-10-29] MEDS ORDERED: METHYLPREDNISOLONE SOD SUCC 40 MG/ML VIAL 1ML IV SCH (18:45)
[2019-10-29] MEDS ORDERED: ACETAMINOPHEN 325 MG TAB PO STA ×2 (18:53)
[2019-10-29] MEDS ORDERED: SODIUM CHLORIDE 0.9% 1000ML 1,000 ML IV STA (18:55)
--- NOTE | 2019-10-29 18:56 | NUR ---
With assistance from beef boner video line, spouse reports patient was seen last week for infection in urine and given injection. Spouse provided this RN with pill bottle and thought is was abx, but actually is vitamins. Spouse reports patient has had a cough x 1 week, and shaking for last 2 days, with episodes of diarrhea. Pt appears ill, assisted onto to stretcher, piv inserted, labs obtained, 12 lead ekg performed, CM placed on patient. Sepsis workup initiated.
[2019-10-29 18:57] LABS: BASOPHILS # (AUTO) 0.1 (0.0-0.1); BASOPHILS % 0.6 % (0.0-1.0); EOSINOPHILS # (AUTO) 0.1 (0.0-0.4); EOSINOPHILS % 0.9 % (0.0-6.0); HEMOGLOBIN 11.5 g/dL (14.0-18.0); LYMPHOCYTES # (AUTO) 1.7 (1.0-3.2); LYMPHOCYTES % 21.4 % (18.0-39.1); MEAN CORPUSCULAR HEMOGLOBIN 28.4 pg (28-32); MEAN CORPUSCULAR HGB CONC 31.1 g/dL (31-35); MEAN CORPUSCULAR VOLUME 91.4 fL (81-99); MONOCYTES # (AUTO) 1.6 (0.2-0.8); NEUTROPHILS # (AUTO) 4.5 (2.1-6.9); NEUTROPHILS % 56.1 % (38.7-80.0); PLATELET COUNT 160 x10e3/uL (140-360); RED BLOOD COUNT 4.05 x10e6/uL (4.3-5.7); RED CELL DISTRIBUTION WIDTH 19.8 % (11.7-14.4)
[2019-10-29] MEDS ORDERED: CEFEPIME 2 GM/NS 0.9% 100 ML 100 ML IV SCH (19:00)
[2019-10-29] MEDS ORDERED: SODIUM CHLORIDE 0.9% 1000ML 1,000 ML ONE (19:01)
[2019-10-29] MEDS ORDERED: ACETAMINOPHEN 650 MG SUPP PR ONE (19:15)
[2019-10-29] MEDS ORDERED: CEFEPIME 1GM/NS 0.9% 50 ML 50 ML IV ONE (19:20)
[2019-10-29 19:37] LABS: B-TYPE NATRIURETIC PEPTIDE2 386.4 pg/mL (0-100)
--- NOTE | 2019-10-29 20:25 | Diagnostic Imaging Report ---
EXAM: CHEST SINGLE (PORTABLE) DATE: 10/29/2019 6:36 PM INDICATION: Chest pain, cough ^ORDER PLACED BY ^[id number] ^193 ^Y COMPARISON: Chest x-ray, 09/24/2019 FINDINGS: Lines and tubes: None The cardiac silhouette is largely obscured but likely enlarged. Nearly complete opacification of left hemithorax has developed since the last exam. There is no focal consolidation in the right lung, with mild central pulmonary vascular prominence. There is no midline shift. Upper abdomen unremarkable. No acute bony abnormality. Wire sternotomy sutures are again noted. IMPRESSION: Opacification of virtually the entire left hemithorax has developed, suggesting large left pleural effusion. Lack of midline shift suggests underlying atelectasis. Right lung remains expanded and clear with mild central pulmonary vascular prominence. Signed by: Dr. Ramesh Valdivia M.D. on 10/29/2019 8:22 PM
[2019-10-29 20:41] LABS: COLOR,URINE YELLOW (YELLOW)
[2019-10-29 20:42] LABS: BILIRUBIN,URINE NEGATIVE (NEGATIVE); CLARITY,URINE HAZY (CLEAR); LEUKOCYTE ESTERASE ,URINE NEGATIVE (NEGATIVE); NITRITE,URINE NEGATIVE (NEGATIVE); PROTEIN,URINE DIPSTICK TRACE (NEGATIVE)
[2019-10-29 20:43] LABS: KETONES,URINE NEGATIVE (NEGATIVE)
[2019-10-29] MEDS ORDERED: SODIUM CHLORIDE 0.9% 1000ML 1,000 ML IV ONE (20:45)
[2019-10-29 20:47] LABS: ALANINE AMINOTRANSFERASE 11 IU/L (0-55); ALBUMIN/GLOBULIN RATIO 0.5 (0.8-2.0); ALKALINE PHOSPHATASE 55 IU/L (40-150); BLOOD UREA NITROGEN 22 mg/dL (7-26); BUN/CREATININE RATIO 20 (6-25); CALCIUM 7.6 mg/dL (8.4-10.2); CARBON DIOXIDE 25 mmol/L (22-29); CHLORIDE 105 mmol/L (98-107); CREATINE KINASE 15 IU/L (30-200); EST GLOMERULAR FILTRATION RATE > 60 ML/MIN (60-); GLUCOSE 111 mg/dL (74-118); SODIUM 138 mmol/L (136-145)
[2019-10-29 21:03] LABS: BACTERIA,URINE FEW /HPF
[2019-10-29 21:04] LABS: EPITHELIAL CELLS,URINE FEW /LPF
[2019-10-29] MEDS ORDERED: DIGOXIN INJ 0.25 MG/ML 2 ML AMP IV ONE (21:15)
--- NOTE | 2019-10-29 21:32 | Diagnostic Imaging Report ---
CT chest without enhancement CPT code: 97506 INDICATION: Cough, chest pain TECHNIQUE: Thin collimation axial images obtained from the thoracic inlet to the level of the diaphragm without intravenous contrast. Dose reduction techniques used: Automated exposure control, adjustment of the mAs and/or kVp according to patient size, standardized low-dose protocol, and/or iterative reconstruction technique. RADIATION DOSE: Total DLP: 497.3 mGy*cm Estimated effective dose: (DLP x 0.015 x size factor) mSv CTDIvol has been reviewed. It is below the limits set by the Radiation Protocol Committee (RPC). COMPARISON: Chest x-ray 09/24/2019, 10/29/2019, CT abdomen 09/24/2019. CHEST FINDINGS: Lymph nodes: Right axillary lymph nodes are enlarged and increased in number, measuring up to 11 mm in short axis. Left axillary lymph node measures 1.7 x 1.1 cm. No enlarged supraclavicular lymph nodes. Mediastinal lymph nodes are increased in number. A precarinal lymph node measures 1.2 x 1.7 cm. Thyroid: Normal in size. No nodules. Mediastinum: The heart is enlarged with cardiac bypass changes. Moderate burden of coronary artery atherosclerosis. No pericardial effusion. Ascending aorta measures 3.8 cm. The esophagus is normal. Lungs/Pleura: Right: Diffuse hyperinflation. Mild basilar atelectasis. No nodule or infiltrate. Trace posterior layering pleural effusion. Left: Large pleural effusion with near complete atelectasis of the lung. This has increased in size compared to the abdominal CT performed September 28, 2019. Airways: Mild tracheobronchomalacia. ABDOMEN FINDINGS: Stable hepatic cyst. Peritoneal and retroperitoneal inflammation is redemonstrated with a small amount of perihepatic ascites. There are an increased number of abdominal lymph nodes that measure less than 10 mm. Bones: T12 compression fracture has progressed (8 mm in thickness versus 12 mm). There is bowing of the posterior cortex into the spinal canal. The spinal canal measures 1.2 cm in diameter (compared to 1.4 cm one level above). No new compression deformities. Median sternotomy is well-healed IMPRESSION: 1. Large left pleural effusion with near complete atelectasis of the left lung. No evidence of tension. 2. Axillary and mediastinal lymphadenopathy with increased number of abdominal lymph nodes. The findings are nonspecific but are concerning for a neoplastic process such as lymphoma. 3. Cardiomegaly and cardiac bypass changes. 4. Small airways disease. 5. Increasing T12 compression deformity and spinal canal compromise. 6. Stable hepatic cyst. Signed by: Dr. Mariano Seo MD on 10/29/2019 9:30 PM
[2019-10-29] MEDS ORDERED: AZITHROMYCIN 500MG/NS 250 ML 250 ML IV STA (21:53)
== END 2019-10-29 23:00 | disposition other institution (70) ==
LOC: ER 18:20
DX: R50.9 Fever, unspecified (principal); R05 Cough; A41.9 Sepsis, unspecified organism; J15.9 Unspecified bacterial pneumonia; J90 Pleural effusion, not elsewhere classified; I48.20 Chronic atrial fibrillation, unspecified
CPT/HCPCS: 36415; 71045; 71250; 80053; 80162; 81001; 82550; 82553; 83605; 83880; 84484; 85025; 87040; 87086; 87400; 93005; 99284; J0456; J0692; J1160; J2920; J7030